=== PATIENT | female | born 1985 | race Caucasian/White ===

== ENCOUNTER 2017-11-17 16:14 | Emergency (ER) | payer OTHER, SELFPAY ==
[2017-11-17 16:15] VITALS: BP 161/80; PULSE 71; RESP 18; TEMP 36.8; O2SAT 100; BMI 35.2
--- NOTE | 2017-11-17 16:35 | ED.DCSUM_ITS ---
- ER Visit Summary Date of Service: 11/17/17 Chief Complaint: Nausea, vomiting. History of Present Illness: The patient is a 32 F presenting with nausea, vomiting. She states this has been ongoing for the past 2 weeks. She is 8 weeks . She states she vomited 3 times today. She states she has been vomiting daily for the past 2 weeks. She is . She has had no vaginal bleeding. She had an ultrasound last week at her OB office which showed an intrauterine . She denies other complaints. She went to her PASTE MAKER office today and was advised to come to the ED for IV fluids. Physical Examination: Vitals are stable. Patient is afebrile. Alert no acute distress. HEENT exam is unremarkable. Neck is supple. Lungs are clear and equal bilaterally. Heart is regular rate and rhythm. Abdomen is soft nontender nondistended. No guarding or rebound. Extremities are unremarkable. Skin is warm and dry. Remainder of exam is unremarkable. Emergency Department Course and Treatment: Patient is given IV fluids, Zofran. CBC shows a white count 11.3. Chemistries unremarkable. Patient is feeling much improved in the emergency department. She is able to tolerate p.o. in the emergency department. 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 She has an appointment with her PASTE MAKER tomorrow for follow- up. She is advised return to ED for any worsening complaints. Disposition: Discharge home Impression: Vomiting in This note was generated with [employer] dictation software. It may contain incorrect words, spelling, and punctuation that were not noted in review of the chart prior to signing ED Disposition - Plan for ED Patient: Chief Complaint: Nausea/Vomiting Instructions: ED Preg Morning Sickness Referrals: Tejinder Webster DO [NON CLINICAL AFFILIATE] - Radha Gomez MD [STAFF PHYSICIAN] -
[2017-11-17] MEDS: 0.9% Normal Saline 1,000 ML 1000 ML IV ×2 (16:51→17:58)
[2017-11-17] MEDS: Ondansetron 4 MG/2 ML Vial IV (16:51)
[2017-11-17 16:59] LABS: Absolute Lymphocyte Count 2.47 X10^3/ul (0.83-4.51); Basophil# 0.03 X10^3/uL; Basophil% 0.3 % (0-1); Eosinophil# 0.08 X10^3/uL; Eosinophils% 0.7 % (0-5); Hematocrit 35.9 % (37-47); Hemoglobin 12.4 g/dl (12.0-15.0); Lymphocyte # 2.47 X10^3/ul (4.0); Lymphocyte % 21.8 % (19-41); Mean Corp Hgb Conc 34.5 g/gl (32-36); Mean Corpuscular Hgb 31.7 pg (27.0-32.0); Mean Corpuscular Volume 91.8 fL (81-99); Mean Platelet Vol. 9.7 fl (6.2-12.0); Monocyte# 0.75 X10^3/uL; Monocyte% 6.6 % (0-10); Neutrophil # 7.97 X10^3/uL (2.7-7.7); Neutrophil % 70.5 % (47-70); Platelet Count 344 K/mm3 (150-450); RBC Distribution Width CV 12.5 % (11.6-14.6); RBC Distribution Width SD 41.1 fl (35.1-43.9); Red Blood Count 3.91 M/mm3 (4.2-5.4); White Blood Count 11.3 K/mm3 (4.4-11.0)
[2017-11-17 17:11] LABS: POSITIVE COUNT NO; POSITIVE DIFFERENTIAL NO; POSITIVE MORPHOLOGY NO
[2017-11-17 17:23] LABS: ALB/GLOB Ratio 1.1 RATIO (0.9-2.4); AST(SGOT) 19 U/L (15-37); Alanine Aminotransfer ALT/SGPT 25 U/L (13-56); Albumin, Serum 3.6 g/dL (3.2-5.0); Alkaline Phosphatase 57 U/L (45-117); Anion Gap 7 (5-15); BUN 11 mg/dL (7-18); Calcium,Total 9.4 mg/dL (8.5-10.1); Chloride 107 mmol/L (98-107); Creatinine, Serum 0.46 mg/dL (0.55-1.02); EST Glomerular Filtration Rate 169 mL/min (>60); Est Glom Filt Rate - Afr Amer 204 mL/min (>60); Estimated Creatinine Clearance 165.89 ml/min; Globulin 3.2 g/dL (2.2-4.2); Glucose 97 mg/dL (74-106); Potassium 3.8 mmol/L (3.5-5.1); Protein, Total 6.8 g/dL (6.4-8.2); Sodium Level 140 mmol/L (136-145)
--- NOTE | 2017-11-17 18:15 | ED.DEP ---
ED Disposition - Plan for ED Patient: Chief Complaint: Nausea/Vomiting Instructions: ED Preg Morning Sickness Referrals: Tejinder Webster DO [NON CLINICAL AFFILIATE] - Radha Gomez MD [STAFF PHYSICIAN] -
[2017-11-17 18:46] VITALS: RESP 16
== END 2017-11-17 18:47 | disposition home or self-care (01) ==
PROVIDERS: Emergency Provider Emergency Medicine; Family Provider Family Medicine; PCP Family Medicine
DX: O21.9 Vomiting of pregnancy, unspecified (principal); Z3A.08 8 weeks gestation of pregnancy
CPT/HCPCS: 80053; 85025; 96361; 96374; 99283; J7030; J2405

== ENCOUNTER 2018-04-22 10:17 | Outpatient (CLI) | payer OTHER, SELFPAY ==
[2018-04-22 10:52] VITALS: BMI 38.2
[2018-04-22 11:00] LABS: Hematocrit 35.4 % (37-47); Hemoglobin 11.9 g/dl (12.0-15.0); Mean Corp Hgb Conc 33.6 g/gl (32-36); Mean Corpuscular Hgb 31.1 pg (27.0-32.0); Mean Corpuscular Volume 92.4 fL (81-99); Mean Platelet Vol. 9.6 fl (6.2-12.0); Platelet Count 376 K/mm3 (150-450); RBC Distribution Width SD 43.2 fl (35.1-43.9); Red Blood Count 3.83 M/mm3 (4.2-5.4); White Blood Count 14.1 K/mm3 (4.4-11.0)
[2018-04-22 11:02] LABS: Scan Indicated on CBC? Y/N NO
[2018-04-22 11:09] LABS: Prothrombin Time (Protime)PT. 12.9 SECONDS (11.7-14.9)
[2018-04-22 11:10] LABS: Partial Thromboplast Time 28.5 Seconds (24.1-36.2)
[2018-04-22 11:11] LABS: Protein, Urine (Random) 10.2 mg/dL (<11.9); Protein:Creat Ratio 95 mg/g CRE (0-200)
[2018-04-22 11:17] LABS: AST(SGOT) 21 U/L (15-37); Alanine Aminotransfer ALT/SGPT 23 U/L (13-56); Creatinine, Serum 0.32 mg/dL (0.55-1.02); EST Glomerular Filtration Rate 253 mL/min (>60); Est Glom Filt Rate - Afr Amer 306 mL/min (>60); Estimated Creatinine Clearance 238.46 ml/min; Uric Acid 3.5 mg/dL (2.6-6.0)
--- NOTE | 2018-04-23 17:57 | OB.TRI.PN ---
Progress Notes Date of Service: 04/22/18 Progress Note: S: at 27w2d Patient seen in office with elevated BP. Sent to L&D for triage, labs, and serial BP. Headache mild, did not take anything for relief. O:Labs normal, awaiting 24h urine FHT 155, moderate variability, accels, variable decel, Reactive 15x15 A:Gestational HTN P: 1) Consulted regarding patient elevated BP, Pre-e precautions given. 2) Follow up in 2 days with . 3) D/C home. Laboratory Studies: Laboratory Tests 04/22/18 04/22/18 04/22/18 Range/Units 10:45 10:45 10:45 WBC (4.4-11.0) K/mm3 RBC (4.2-5.4) M/mm3 Hgb (12.0-15.0) g/dl Hct (37-47) % MCV (81-99) fL MCH (27.0-32.0) pg MCHC (32-36) g/gl RDW (11.6-14.6) % RDW Differential (35.1-43.9) fl Plt Count (150-450) K/mm3 MPV (6.2-12.0) fl PT 12.9 (11.7-14.9) SECONDS INR 1.0 APTT 28.5 (24.1-36.2) Seconds Creatinine 0.32 L (0.55-1.02) mg/dL Estim Creat Clear Calc 238.46 ml/min Est GFR (MDRD) Af Amer 306 (>60) mL/min Est GFR (MDRD) Non-Af 253 (>60) mL/min Uric Acid 3.5 (2.6-6.0) mg/dL AST 21 (15-37) U/L ALT 23 (13-56) U/L U Random Total Protein 10.2 (<11.9) mg/dL Urine Creatinine 107.00 (NO RANGE EST.) mg/dL Protein/Creatinin Ratio 95 (0-200) mg/g CRE 04/22/18 Range/Units 10:45 WBC 14.1 H (4.4-11.0) K/mm3 RBC 3.83 L (4.2-5.4) M/mm3 Hgb 11.9 L (12.0-15.0) g/dl Hct 35.4 L (37-47) % MCV 92.4 (81-99) fL MCH 31.1 (27.0-32.0) pg MCHC 33.6 (32-36) g/gl RDW 13.0 (11.6-14.6) % RDW Differential 43.2 (35.1-43.9) fl Plt Count 376 (150-450) K/mm3 MPV 9.6 (6.2-12.0) fl PT (11.7-14.9) SECONDS INR APTT (24.1-36.2) Seconds Creatinine (0.55-1.02) mg/dL Estim Creat Clear Calc ml/min Est GFR (MDRD) Af Amer (>60) mL/min Est GFR (MDRD) Non-Af (>60) mL/min Uric Acid (2.6-6.0) mg/dL AST (15-37) U/L ALT (13-56) U/L U Random Total Protein (<11.9) mg/dL Urine Creatinine (NO RANGE EST.) mg/dL Protein/Creatinin Ratio (0-200) mg/g CRE
--- NOTE | 2018-04-23 18:10 | OB.TRI.PN ---
Progress Notes Date of Service: 04/22/18 Progress Note: S: at 31w0d Patient seen in office with elevated BP. Sent to L&D for triage, labs, and serial BP. Headache mild, took tylenol and effective. Denies RUQ pain or visual changes. 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 In office 154/88. O:Labs normal, awaiting 24h urine FHT 145, moderate variability accels, reactive. In office no clonus, +2/4 BLE DTRs A:Gestational HTN P: 1) Consulted regarding patient elevated BP, Pre-e precautions given. To start Labetalol 100mg PO BID. 2) Follow up in 2 days with . 3) D/C home. 4) Return 24 hr urine on 04/23/18 Laboratory Studies: Laboratory Tests 04/22/18 04/22/18 04/22/18 Range/Units 10:45 10:45 10:45 WBC (4.4-11.0) K/mm3 RBC (4.2-5.4) M/mm3 Hgb (12.0-15.0) g/dl Hct (37-47) % MCV (81-99) fL MCH (27.0-32.0) pg MCHC (32-36) g/gl RDW (11.6-14.6) % RDW Differential (35.1-43.9) fl Plt Count (150-450) K/mm3 MPV (6.2-12.0) fl PT 12.9 (11.7-14.9) SECONDS INR 1.0 APTT 28.5 (24.1-36.2) Seconds Creatinine 0.32 L (0.55-1.02) mg/dL Estim Creat Clear Calc 238.46 ml/min Est GFR (MDRD) Af Amer 306 (>60) mL/min Est GFR (MDRD) Non-Af 253 (>60) mL/min Uric Acid 3.5 (2.6-6.0) mg/dL AST 21 (15-37) U/L ALT 23 (13-56) U/L U Random Total Protein 10.2 (<11.9) mg/dL Urine Creatinine 107.00 (NO RANGE EST.) mg/dL Protein/Creatinin Ratio 95 (0-200) mg/g CRE 04/22/18 Range/Units 10:45 WBC 14.1 H (4.4-11.0) K/mm3 RBC 3.83 L (4.2-5.4) M/mm3 Hgb 11.9 L (12.0-15.0) g/dl Hct 35.4 L (37-47) % MCV 92.4 (81-99) fL MCH 31.1 (27.0-32.0) pg MCHC 33.6 (32-36) g/gl RDW 13.0 (11.6-14.6) % RDW Differential 43.2 (35.1-43.9) fl Plt Count 376 (150-450) K/mm3 MPV 9.6 (6.2-12.0) fl PT (11.7-14.9) SECONDS INR APTT (24.1-36.2) Seconds Creatinine (0.55-1.02) mg/dL Estim Creat Clear Calc ml/min Est GFR (MDRD) Af Amer (>60) mL/min Est GFR (MDRD) Non-Af (>60) mL/min Uric Acid (2.6-6.0) mg/dL AST (15-37) U/L ALT (13-56) U/L U Random Total Protein (<11.9) mg/dL Urine Creatinine (NO RANGE EST.) mg/dL Protein/Creatinin Ratio (0-200) mg/g CRE
== END 2018-04-22 13:40 | disposition home or self-care (01) ==
LOC: WPOUT 10:20 → WP 10:21
PROVIDERS: Obstetrics & Gynecology; Family Provider Family Medicine; PCP Family Medicine; Referring Provider Advanced Practice Midwife; Visit Provider Advanced Practice Midwife
DX: O13.3 Gestational [pregnancy-induced] hypertension without significant proteinuria, third trimester (principal); Z3A.31 31 weeks gestation of pregnancy
CPT/HCPCS: 36415; 59025; 59050; 82565; 82570; 84156; 84450; 84460; 84550; 85027; 85610; 85730; 99218; G0378

== ENCOUNTER → 2018-04-23 13:48 | Outpatient (CLI) | payer OTHER, SELFPAY ==
[2018-04-22 10:52] VITALS: BMI 38.2
[2018-04-23 17:33] LABS: 24 Hour Urine Protein 125.2 mg/24HR (<150 MG/24HR); 24HR. UA Prot. Total Volume 1670 mL; Urine Protein (24 Hour) 7.5 mg/dL (<11.9)
== END ==
PROVIDERS: Family Provider Family Medicine; PCP Family Medicine; Referring Provider Advanced Practice Midwife; Visit Provider Advanced Practice Midwife
DX: O13.9 Gestational [pregnancy-induced] hypertension without significant proteinuria, unspecified trimester (principal); Z3A.00 Weeks of gestation of pregnancy not specified
CPT/HCPCS: 84156

== ENCOUNTER 2018-05-07 12:45 | Outpatient (CLI) | payer OTHER, SELFPAY ==
[2018-05-07 13:03] VITALS: BMI 38.1
[2018-05-07 13:38] LABS: Hemoglobin 12.1 g/dl (12.0-15.0); Mean Corp Hgb Conc 32.7 g/gl (32-36); Mean Corpuscular Volume 91.8 fL (81-99); Mean Platelet Vol. 9.6 fl (6.2-12.0); Platelet Count 323 K/mm3 (150-450); RBC Distribution Width CV 13.4 % (11.6-14.6); RBC Distribution Width SD 44.6 fl (35.1-43.9); Red Blood Count 4.03 M/mm3 (4.2-5.4); White Blood Count 8.6 K/mm3 (4.4-11.0)
[2018-05-07 13:40] LABS: Scan Indicated on CBC? Y/N NO
[2018-05-07 13:44] LABS: AST(SGOT) 13 U/L (15-37); Alanine Aminotransfer ALT/SGPT 14 U/L (13-56); Creatinine, Serum 0.35 mg/dL (0.55-1.02); EST Glomerular Filtration Rate 230 mL/min (>60); Est Glom Filt Rate - Afr Amer 278 mL/min (>60); Estimated Creatinine Clearance 218.02 ml/min; Protein, Urine (Random) 40.4 mg/dL (<11.9); Protein:Creat Ratio 155 mg/g CRE (0-200); Uric Acid 3.4 mg/dL (2.6-6.0)
[2018-05-07 13:53] LABS: Partial Thromboplast Time 28.6 Seconds (24.1-36.2)
--- NOTE | 2018-05-07 14:29 | OB.TRI.HP_ITS ---
History of Present Illness Date of Service: 05/07/18 Was patient seen by the physician?: Yes Reason For Visit: R/O PREECLAMPSIA Date of Service: 05/07/18 Final REYNA: 06/24/18 Gestational age: 33 Weeks and 1 Days History of Present Illness: Patient presents with frontal headache - 09/28. Also she sees some spots. Denies RUQ pain. She just doesn't feel well & is tried. Her appetite is decreased & hasn't eaten or drank much today. Allergies tramadol [From [facility]] Adverse Reaction (Verified 05/07/18 13:05) Other dizziness, lightheaded Laboratory Studies: Laboratory Tests 05/07/18 05/07/18 05/07/18 Range/Units 13:15 13:15 13:15 WBC (4.4-11.0) K/mm3 RBC (4.2-5.4) M/mm3 Hgb (12.0-15.0) g/dl Hct (37-47) % MCV (81-99) fL MCH (27.0-32.0) pg MCHC (32-36) g/gl RDW (11.6-14.6) % RDW Differential (35.1-43.9) fl Plt Count (150-450) K/mm3 MPV (6.2-12.0) fl PT 13.0 (11.7-14.9) SECONDS INR 1.0 APTT 28.6 (24.1-36.2) Seconds Creatinine 0.35 L (0.55-1.02) mg/dL Estim Creat Clear Calc 218.02 ml/min Est GFR (MDRD) Af Amer 278 (>60) mL/min Est GFR (MDRD) Non-Af 230 (>60) mL/min Uric Acid 3.4 (2.6-6.0) mg/dL AST 13 L (15-37) U/L ALT 14 (13-56) U/L U Random Total Protein 40.4 H (<11.9) mg/dL Urine Creatinine 261.00 (NO RANGE EST.) mg/dL Protein/Creatinin Ratio 155 (0-200) mg/g CRE 05/07/18 Range/Units 13:15 WBC 8.6 (4.4-11.0) K/mm3 RBC 4.03 L (4.2-5.4) M/mm3 Hgb 12.1 (12.0-15.0) g/dl Hct 37.0 (37-47) % MCV 91.8 (81-99) fL MCH 30.0 (27.0-32.0) pg MCHC 32.7 (32-36) g/gl RDW 13.4 (11.6-14.6) % RDW Differential 44.6 H (35.1-43.9) fl Plt Count 323 (150-450) K/mm3 MPV 9.6 (6.2-12.0) fl PT (11.7-14.9) SECONDS INR APTT (24.1-36.2) Seconds Creatinine (0.55-1.02) mg/dL Estim Creat Clear Calc ml/min Est GFR (MDRD) Af Amer (>60) mL/min Est GFR (MDRD) Non-Af (>60) mL/min Uric Acid (2.6-6.0) mg/dL AST (15-37) U/L ALT (13-56) U/L U Random Total Protein (<11.9) mg/dL Urine Creatinine (NO RANGE EST.) mg/dL Protein/Creatinin Ratio (0-200) mg/g CRE Physical Exam General: Alert, Oriented x3 NST - FHR Rate Baby A Baseline: 145 Variability:: Moderate Accelerations:: 15 x 15 Decelerations:: Variable Uterine Activity:: occasional Impression/Plan 32yo female with frontal headache & spots in vision BP's normal & preE labs normal Suspect patient has virus Advised to rest & hydrate Reviewed preE & headache precautions
--- OUTSIDE RECORDS SUMMARY | 2018-07-12 05:23 | XMS RPT_ITS ---
:1985 Author Organization OH[facility] Care Team Providers Name Role Phone LUZ GLORIA (INFO SPECIALIST) Attending Unavailable LUZ GLORIA (INFO SPECIALIST) Referring Unavailable JETHRO AVALOS Attending Unavailable YAQUELIN NAIK (PRABHUM) Referring Unavailable YAQUELIN NAIK (CNM) Attending Unavailable OSCAR DREW (CNM) Attending Unavailable YAQUELIN NAIK (PRABHUM) Attending Unavailable GEORGINA CISNEROS Attending Unavailable OSCAR DREW (PRABHUM) Referring Unavailable JB LORA Attending Unavailable GEORGINA CISNEROS Referring Unavailable OSCAR DREW (PRABHUM) Attending Unavailable NEYHART ROME, JETHRO Referring Unavailable PIERO NAYAK Attending Unavailable YAQUELIN NAIK (CNM) Attending Unavailable GEORGINA CISNEROS Attending Unavailable JB LORA Attending Unavailable PIERO NAYAK Referring Unavailable JETHRO AVALOS Attending Unavailable PODLOGARARIANA (INFO SPECIALIST) Attending Unavailable PODLOGAR, ARIANA (INFO SPECIALIST) Referring Unavailable NANNETTE WERNER Attending Unavailable NANNETTE WERNER Referring Unavailable PODLOGAR, ARIANA (INFO SPECIALIST) Referring Unavailable GEORGINA CISNEROS Attending Unavailable OSCAR DREW (CNM) Attending Unavailable TRACY ROME, JETHRO Attending Unavailable JB LORA Attending Unavailable TRACY ROME, JETHRO Referring Unavailable YAQUELIN NAIK (CNM) Attending Unavailable TRACY ROME, JETHRO Referring Unavailable Oscar Drew Attending Unavailable Rajendra Oscar Referring Unavailable Bursley, Jayson Primary Care Unavailable Oscar Drew Attending Unavailable Rajendra Oscar Referring Unavailable Bursley, Jayson Primary Care Unavailable Linsey Zuleta Attending Unavailable Tejinder Webster Referring Unavailable Marlene Keating Attending Unavailable Bursley, Jayson Primary Care Unavailable Piero Nayak Attending Unavailable Piero Nayak Referring Unavailable Bursley, Jayson Primary Care Unavailable PROBLEMS PROBLEMS DATE TYPE CONDITION / CODE ATTENDING STATUS SOURCE 04/11/2018 Active Mixed hyperlipidemia NA Active [facility] / E78.2(ICD-10) [place] Repository 03/31/2018 Active 27 weeks gestation NA Active [facility] of / [place] Z3A.27(ICD-10) Repository 03/19/2018 Active Encounter for other NA Active [facility] specified special [place] examinations / Repository Z01.89(ICD-10) 11/18/2017 Active Supervision of high NA Active [facility] risk , [place] unspecified, first Repository trimester / O09.91(ICD-10) 11/06/2017 Active Unknown / NA Active [facility] UNK(Unknown) [place] Rep[facility] 07/22/2017 Active Pain in left foot / NA Active [facility] M79.672(ICD-10) [facility] [place] Rep[facility] PROCEDURES PROCEDURES No Procedure Records FoundRESULTS RESULTS PROGRESS Observed: 05/14/2018 Status: COMPLETED Source: [facility] 2:21 PM [facility] REPOSITORY HNO ID: [id number] Author: Jessica Ballard Ma Service: (none) Author Type: (none) Type: Progress Notes Filed: 05/14/2018 2:37 PM Note Text: Patient identified by name and date of . Odin Bartlett presents today for a vaccination of Tdap. Patient denies an allergy to latex: yes Patient denies a severe (life-threatening) allergy to a previous dose of Tdap, DTP, DTaP, DT or Td vaccine. Yes Patient denies history of epilepsy or neurological problems: Yes Patient is afebrile and denies being moderately or severely ill: Yes Patient denies history of Guillain-Griswold Syndrome (a severe paralytic illness): Yes Tdap Adacel injection was given without incident. See immunizations for details of immunizations administered today. VIS sheet provided: Yes Provider Yaquelin aNik CNM was present in office at time of injection. Jessica Ballard Ma PROGRESS Observed: 05/14/2018 Status: COMPLETED Source: [place] 2:18 PM [facility] REPOSITORY HNO ID: [id number] Author: Jb Lora Service: (none) Author Type: Physician Type: Progress Notes Filed: 05/14/2018 2:21 PM Note Text: A lamb intrauterine The size is AGA Estimated Date of Delivery: 06/24/18 EGA = [id number] The anatomy appears normal in the areas visualized. The amniotic fluid volume is normal. There is no evidence of effusions and/ or hydrops. The placenta is fundal. RECOMMENDATIONS: - Self-assessment of kick counts - Follow up ultrasound as clinically indicated CBC-COMPLETE BLOOD CNT Collected: 05/07/2018 Status: F Source: [place] NO DIFF 1:15 PM [facility] REPOSITORY TYPE CODE TESTS RESULT OUT OF RANGE REFERENCE UNITS LAB L100.1000 4.4-11.0 K/mm3 Normal WBC 8.6 LAB L100.1200 4.2-5.4 M/mm3 Low RBC 4.03 LAB L100.1300 12.0-15.0 g/dl Normal HGB 12.1 LAB L100.1400 37-47 % Normal HCT 37.0 LAB L100.1500 81-99 fL Normal MCV 91.8 LAB L100.1600 27.0-32.0 pg Normal MCH 30.0 LAB L100.1700 32-36 g/gl Normal MCHC 32.7 LAB L100.1810 11.6-14.6 % Normal RDW CV 13.4 LAB L100.1820 35.1-43.9 fl High RDW SD 44.6 LAB L100.1900 150-450 K/mm3 Normal PLT 323 LAB L100.2000 6.2-12.0 fl Normal MPV 9.6 Performed By: #### L100.0500 #### [facility] [address] [place], [address] PROTEIN+CREATININE Collected: Status: F Source: [place] RATIO,URINE 05/07/2018 1:15 PM [facility] REPOSITORY TYPE CODE TESTS RESULT OUT OF RANGE REFERENCE UNITS LAB L501.1200 NO RANGE EST. mg/dL Normal UR CREAT 261.00 LAB L501.1930 <11.9 mg/dL High 40.4 PROTEIN,UR.R AN. LAB L501.1940 0-200 mg/g CRE Normal PROT:CRE 155 RATIO Performed By: #### L501.0900 #### [facility] [address] [place], [address] SERUM CREATININE AND Collected: 05/07/2018 Status: F Source: [place] GFR 1:15 PM [facility] REPOSITORY TYPE CODE TESTS RESULT OUT OF RANGE REFERENCE UNITS LAB L501.1100 0.55-1.02 mg/dL Low 0.35 CREAT,SERUM Result Comment: The validity of the calculated GFR AND GFRAA in patients over 70 years has not been determined. Clinical correlation is essential. LAB L501.1110 >60 mL/min Normal EST GFR 230 Result Comment: Non- GFR Calc LAB L501.1115 >60 mL/min Normal EST GFR - AA 278 Result Comment: GFR Calc LAB L501.1255 ml/min Normal Estimated CRCL 218.02 Performed By: #### L501.1105, L501.1400, L501.4100, L501.4405, L300.3900, L300.4310 #### [facility] [address] [place], [address] URIC ACID Collected: 05/07/2018 Status: F Source: [place] 1:15 PM [facility] REPOSITORY TYPE CODE TESTS RESULT OUT OF RANGE REFERENCE UNITS LAB L501.1400 2.6-6.0 mg/dL Normal URIC 3.4 Result Comment: The drugs N-Acetylcysteine and Metamizole may falsely depress this assay. Performed By: #### L501.1105, L501.1400, L501.4100, L501.4405, L300.3900, L300.4310 #### [facility] [address] [facility] [place], [address] AST(SGOT) Collected: 05/07/2018 Status: F Source: [place] 1:15 PM [facility] REPOSITORY TYPE CODE TESTS RESULT OUT OF RANGE REFERENCE UNITS LAB L501.4100 15-37 U/L Low AST 13 Performed By: #### L501.1105, L501.1400, L501.4100, L501.4405, L300.3900, L300.4310 #### [facility] [address] [facility] [place], [address] ALANINE AMINOTRANSFERAS Collected: 05/07/2018 Status: F Source: [place] (SGPT) 1:15 PM [facility] REPOSITORY TYPE CODE TESTS RESULT OUT OF RANGE REFERENCE UNITS LAB L501.4405 13-56 U/L Normal ALT 14 Performed By: #### L501.1105, L501.1400, L501.4100, L501.4405, L300.3900, L300.4310 #### [facility] [address] [facility] [place], [address] PROTHROMBIN TIME W/INR Collected: 05/07/2018 Status: F Source: [place] 1:15 PM [facility] REPOSITORY TYPE CODE TESTS RESULT OUT OF RANGE REFERENCE UNITS LAB L300.4150 11.7-14.9 SECONDS Normal PROTIME 13.0 LAB L300.4200 Normal INR 1.0 Performed By: #### L501.1105, L501.1400, L501.4100, L501.4405, L300.3900, L300.4310 #### [facility] [address] [place], [address] PARTIAL THROMBOPLAST Collected: 05/07/2018 Status: F Source: [place] TIME 1:15 PM [facility] REPOSITORY TYPE CODE TESTS RESULT OUT OF RANGE REFERENCE UNITS LAB L300.4310 24.1-36.2 Seconds Normal PTT 28.6 Performed By: #### L501.1105, L501.1400, L501.4100, L501.4405, L300.3900, L300.4310 #### [facility] [address] [place], [address] CNCO Observed: 04/27/2018 Status: COMPLETED Source: [place] 12:00 AM [facility] REPOSITORY Letter Text Jethro Rome MD [facility] [address] [place], [place] [address] 04/27/2018 RE: Odin Dhruv : 1985 To Whom It May Concern: Odin has been under my care and may return to work with no restrictions on 04/29/2018 Sincerely, Jethro Rome MD PROTEIN, URINE 24HR Collected: 04/23/2018 Status: F Source: [place] 1:30 PM [facility] REPOSITORY TYPE CODE TESTS RESULT OUT OF RANGE REFERENCE UNITS LAB L501.1850 24.0 HOURS Normal UR COLLECT 24.0 TIME LAB L501.1875 mL Normal UR TOTAL 1670 VOLUME LAB L501.1900 <11.9 mg/dL Normal URINE PROTEIN 7.5 LAB L501.1925 <150 MG/24HR mg/24HR Normal 24hr UR 125.2 PROTEIN Performed By: #### L500.9000 #### [facility] [address] [place], [address] CBC-COMPLETE BLOOD CNT Collected: 04/22/2018 Status: F Source: [place] NO DIFF 10:45 AM [facility] REPOSITORY TYPE CODE TESTS RESULT OUT OF RANGE REFERENCE UNITS LAB L100.1000 4.4-11.0 K/mm3 High WBC 14.1 LAB L100.1200 4.2-5.4 M/mm3 Low RBC 3.83 LAB L100.1300 12.0-15.0 g/dl Low HGB 11.9 LAB L100.1400 37-47 % Low HCT 35.4 LAB L100.1500 81-99 fL Normal MCV 92.4 LAB L100.1600 27.0-32.0 pg Normal MCH 31.1 LAB L100.1700 32-36 g/gl Normal MCHC 33.6 LAB L100.1810 11.6-14.6 % Normal RDW CV 13.0 LAB L100.1820 35.1-43.9 fl Normal RDW SD 43.2 LAB L100.1900 150-450 K/mm3 Normal PLT 376 LAB L100.2000 6.2-12.0 fl Normal MPV 9.6 Performed By: #### L100.0500 #### [facility] [address] [place], [address] PROTHROMBIN TIME W/INR Collected: 04/22/2018 Status: F Source: [place] 10:45 AM [facility] REPOSITORY TYPE CODE TESTS RESULT OUT OF RANGE REFERENCE UNITS LAB L300.4150 11.7-14.9 SECONDS Normal PROTIME 12.9 LAB L300.4200 Normal INR 1.0 Performed By: #### L300.3900, L300.4310 #### [facility] [address] [place], [address] PARTIAL THROMBOPLAST Collected: 04/22/2018 Status: F Source: [place] TIME 10:45 AM [facility] REPOSITORY TYPE CODE TESTS RESULT OUT OF RANGE REFERENCE UNITS LAB L300.4310 24.1-36.2 Seconds Normal PTT 28.5 Performed By: #### L300.3900, L300.4310 #### [facility] [address] [place], [address] PROTEIN+CREATININE Collected: Status: F Source: [place] RATIO,URINE 04/22/2018 10:45 AM [facility] REPOSITORY TYPE CODE TESTS RESULT OUT OF RANGE REFERENCE UNITS LAB L501.1200 NO RANGE EST. mg/dL Normal UR CREAT 107.00 LAB L501.1930 <11.9 mg/dL Normal 10.2 PROTEIN,UR.R AN. LAB L501.1940 0-200 mg/g CRE Normal PROT:CRE 95 RATIO Performed By: #### L501.0900 #### [facility] [address], [address] SERUM CREATININE AND Collected: 04/22/2018 Status: F Source: [place] GFR 10:45 AM [facility] REPOSITORY TYPE CODE TESTS RESULT OUT OF RANGE REFERENCE UNITS LAB L501.1100 0.55-1.02 mg/dL Low 0.32 CREAT,SERUM Result Comment: The validity of the calculated GFR AND GFRAA in patients over 70 years has not been determined. Clinical correlation is essential. LAB L501.1110 >60 mL/min Normal EST GFR 253 Result Comment: Non- GFR Calc LAB L501.1115 >60 mL/min Normal EST GFR - AA 306 Result Comment: GFR Calc LAB L501.1255 ml/min Normal Estimated CRCL 238.46 Performed By: #### L501.1105, L501.1400, L501.4100, L501.4405 #### [facility] [address] [place], [address] URIC ACID Collected: 04/22/2018 Status: F Source: [place] 10:45 AM [facility] REPOSITORY TYPE CODE TESTS RESULT OUT OF RANGE REFERENCE UNITS LAB L501.1400 2.6-6.0 mg/dL Normal URIC 3.5 Result Comment: The drugs N-Acetylcysteine and Metamizole may falsely depress this assay. Performed By: #### L501.1105, L501.1400, L501.4100, L501.4405 #### [facility] [address] [place], [address] AST(SGOT) Collected: 04/22/2018 Status: F Source: [place] 10:45 AM [facility] REPOSITORY TYPE CODE TESTS RESULT OUT OF RANGE REFERENCE UNITS LAB L501.4100 15-37 U/L Normal AST 21 Performed By: #### L501.1105, L501.1400, L501.4100, L501.4405 #### [facility] [address] [place], [address] ALANINE AMINOTRANSFERAS Collected: 04/22/2018 Status: F Source: [place] (SGPT) 10:45 AM [facility] REPOSITORY TYPE CODE TESTS RESULT OUT OF RANGE REFERENCE UNITS LAB L501.4405 13-56 U/L Normal ALT 23 Performed By: #### L501.1105, L501.1400, L501.4100, L501.4405 #### [facility] [address] [place], [address] LIPID PANEL, BASIC Collected: 04/11/2018 Status: F Source: [place] 8:31 AM [facility] REPOSITORY TYPE CODE TESTS RESULT OUT OF REFERENCE UNITS RANGE LAB CHOL <200 mg/dL Cholesterol High 300 Result Comment: <200 mg/dL, Desirable 200-239 mg/dL, Borderline high >239 mg/dL, High LAB TRIGLY <150 mg/dL Triglyceride High 214 Result Comment: <150 mg/dL, Normal 150-199 mg/dL, Borderline high 200-499 mg/dL, High >499 mg/dL, Very high LAB HDL >39 mg/dL HDL-Cholesterol 53 Result Comment: 40-59 mg/dL, Acceptable >59 mg/dL, High: Negative risk factor for coronary heart disease <40 mg/dL, Low: Positive risk factor for coronary heart disease LAB LDL <100 mg/dL LDL-Cholesterol High 204 Result Comment: <100 mg/dL, Optimal 100-129 mg/dL, Near optimal/above optimal 130-159 mg/dL, Borderline high 160-189 mg/dL, High >189 mg/dL, Very high Secondary prevention optimal LDL Cholesterol levels are recommended to be < 70 mg/dL LAB NONHDL <130 mg/dL Non HDL High Cholesterol 247 Result Comment: <130 mg/dL, Optimal 130-159 mg/dL, Near optimal/above optimal 160-189 mg/dL, Borderline high 190-219 mg/dL, High >219 mg/dL, Very high Secondary prevention optimal non HDL Cholesterol levels are recommended to be < 100 mg/dL LAB FT hrs Fasting Time 12 LAB VLDL <30 mg/dL High VLDL Cholesterol 43 LAB TCHDL <5.10 High TC:HDL Ratio 5.66 LAB LDLHDL <2.54 High LDL:HDL Ratio 3.85 Result Comment: Reference: 1. National Cholesterol Education Program ATP III Guideline At-A-Glance Quick Desk Reference: National Heart, Lung, and Blood [place]. National Institutes of Health. 2001: NIH Publication No. 01-3305. 2. An International Atherosclerosis Society position paper: global recommendations for the management of dyslipidemia: executive summary, Atherosclerosis. 2014: 232(2):410-413. Performed By: #### LIPB #### [facility] [employer] [address] [place] [address] CBC AND DIFFERENTIAL Collected: 03/31/2018 Status: F Source: [place] 11:59 AM [facility] REPOSITORY TYPE CODE TESTS RESULT OUT OF REFERENCE UNITS RANGE LAB WBC 3.70-11.00 k/uL WBC High 12.71 LAB RBC 3.90-5.20 m/uL Low RBC 3.83 LAB HGB 11.5-15.5 g/dL Hemoglobin 11.6 LAB HCT 36.0-46.0 % Hematocrit 37.0 LAB MCV 80.0-100.0 fL MCV 96.6 LAB MCH 26.0-34.0 pG MCH 30.3 LAB MCHC 30.5-36.0 g/dL MCHC 31.4 LAB RDWCV 11.5-15.0 % RDW-CV 13.2 LAB PLTCT 150-400 k/uL Platelet Count 395 LAB MPV 9.0-12.7 fL MPV 10.3 LAB ANEUT % Neut% 76.4 LAB AANEUT 1.45-7.50 k/uL Abs Neut High 9.71 LAB ALYMP % Lymph% 16.4 LAB AALYMP 1.00-4.00 k/uL Abs Lymph 2.08 LAB AMONO % [place]% 5.7 LAB AAMONO <0.87 k/uL Abs [place] 0.73 LAB AEOS % Eosin% 1.2 LAB AAEOS <0.46 k/uL Abs Eosin 0.15 LAB ABASO % Baso% 0.3 LAB AABASO <0.11 k/uL Abs Baso 0.04 LAB AUNRBC 0 /100 WBC NRBCs 0.0 LAB ABNRBC <0.01 k/uL Absolute nRBC <0.01 LAB DTYP DTYPE Auto Diff Performed By: #### CBCDIF #### [facility] [employer] [address] [place], [place] [address] 50G, 1HR GEST. Collected: 03/31/2018 Status: F Source: [place] GSCRN 11:59 AM [facility] REPOSITORY TYPE CODE TESTS RESULT OUT OF REFERENCE UNITS RANGE LAB GLUP 74-134 mg/dL Glucose 100 Screen, Preg Result Comment: Indian Congress of Obstetricians and Gynecologists (Hill/Remingtonan) guidelines state a gestational diabetes mellitus positive screen is made, in women not previously diagnosed with overt diabetes, when the 1 hr plasma glucose level is equal to or above 140 mg/dL. The [facility] Software Design Engineer and [facility] [place] recommends a 135 mg/dL cutoff. Performed By: #### GLTGST #### [facility] [employer] [address] [place], [place] [address] BASIC METABOLIC PANL Collected: 03/19/2018 Status: F Source: [place] 2:15 PM [facility] REPOSITORY TYPE CODE TESTS RESULT OUT OF REFERENCE UNITS RANGE LAB GLU 74-99 mg/dL Glucose 88 Result Comment: The Indian Diabetes Association (ADA) provides guidance for cutoff values for fasting glucose and random glucose. The ADA defines fasting as no caloric intake for at least 8 hours. Fas ting plasma glucose results between 100 to 125 mg/dL indicate increased risk for diabetes (prediabetes). Fasting plasma glucose results greater than or equal to 126 mg/dL meet the criteria for diagnosis of diabetes. In the absence of unequivocal hyperglycemia, results should be confirmed by repeat testing. In a patient with classic symptoms of hyperglycemia or hyperglycemic crisis, random plasma glucose results greater than or equal to 200 mg/dL meet the criteria for diagnosis of diabetes. Reference: Standards of Medical Care in Diabetes 2016, Indian Diabetes Association. Diabetes Care. 2016.39(Suppl 1). LAB BUN 7-21 mg/dL BUN Low 6 LAB CRET 0.58-0.96 mg/dL Creatinine Low 0.46 LAB NA 136-144 mmol/L Sodium 137 LAB K 3.7-5.1 mmol/L Potassium 3.8 LAB CL 97-105 mmol/L Chloride 102 LAB CO2 22-30 mmol/L CO2 25 LAB AGAP 9-18 mmol/L Anion Gap 10 LAB CA 8.5-10.2 mg/dL Calcium, Total 9.2 LAB GFRAA eGFR- Amer. >60 LAB GFRNAA . eGFR-All Other Races >60 Result Comment: eGFR (Estimated GFR) Units of measure: mL/min/1.73 meters squared eGFR is derived from the reexpressed MDRD Study equation using the following parameters: serum creatinine, age, gender and race. The creatinine assay has been calibrated to be traceable to IDMS. An eGFR <60 mL/min/1.73m2 for >3 months is consistent with chronic kidney disease. Refer to KDOQI guidelines for clinical interpretation. In patients with unstable renal function, e.g. those with acute kidney injury, the eGFR may not accurately reflect actual GFR. Performed By: #### BMP, LIPNF, HBA1C #### [facility] [address] [place], [place] [address] LIPID PANEL, NONFAST Collected: 03/19/2018 Status: F Source: [place] 2:15 PM [facility] REPOSITORY TYPE CODE TESTS RESULT OUT OF REFERENCE UNITS RANGE LAB CHOLNF <200 mg/dL Total High Cholesterol NF 285 Result Comment: <200 mg/dL, Desirable 200-239 mg/dL, Borderline high >239 mg/dL, High LAB TRIGNF <150 mg/dL Triglycerides, NF High 227 Result Comment: <150 mg/dL, Normal 150-199 mg/dL, Borderline high 200-499 mg/dL, High >499 mg/dL, Very high LAB HDLNF >39 mg/dL HDL Cholesterol, NF 53 Result Comment: 40-59 mg/dL, Acceptable >59 mg/dL, High: Negative risk factor for coronary heart disease <40 mg/dL, Low: Positive risk factor for coronary heart disease LAB LDLNF <100 mg/dL LDL Cholesterol, High NF 187 Result Comment: <100 mg/dL, Optimal 100-129 mg/dL, Near optimal/above optimal 130-159 mg/dL, Borderline high 160-189 mg/dL, High >189 mg/dL, Very high Secondary prevention optimal LDL Cholesterol levels are recommended to be < 70 mg/dL LAB NOHDLN <130 mg/dL High Non HDL Chol, 232 NF Result Comment: <130 mg/dL, Optimal 130-159 mg/dL, Near optimal/above optimal 160-189 mg/dL, Borderline high 190-219 mg/dL, High >219 mg/dL, Very high Secondary prevention optimal non HDL Cholesterol levels are recommended to be < 100 mg/dL LAB VLDLNF <30 mg/dL VLDL Cholesterol, High NF 45 LAB TCHDLN <5.10 mg/dL T Chol/HDL Ratio High NF 5.38 LAB LDLHDN <2.54 mg/dL LDL/HDL Ratio, NF High 3.53 Result Comment: Reference: 1. National Cholesterol Education Program ATP III Guideline At-A-Glance Quick Desk Reference: National Heart, Lung, and Blood [place]. National Institutes of Health. 2001: NIH Publication No. 01-3305. 2. An International Atherosclerosis Society position paper: global recommendations for the management of dyslipidemia: executive summary, Atherosclerosis. 2014: 232(2):410-413. Performed By: #### BMP, LIPNF, HBA1C #### [facility] [employer] [address], [place] [id number] HEMOGLOBIN A1C Collected: 03/19/2018 Status: F Source: [place] 2:15 PM [facility] REPOSITORY TYPE CODE TESTS RESULT OUT OF REFERENCE UNITS RANGE LAB HGBA1C 4.3-5.6 % Hemoglobin A1c 5.2 Result Comment: Indian Diabetes Association guidelines indicate that patients with HgbA1c in the range 5.7-6.4% are at increased risk for development of diabetes, and intervention by lifestyle modification may be beneficial. HgbA1c greater or equal to 6.5% is considered diagnostic of diabetes. LAB HBA0 mg/dL Est. Average Glucose 103 Result Comment: eAG: (Estimated average glucose) is a calculated value from HgbA1c and is policy services representative of the average blood glucose level in the last 2-3 month period. Performed By: #### BMP, LIPNF, HBA1C #### [facility] [employer] [address] [place], [place] [id number] PROGRESS Observed: 03/19/2018 Status: COMPLETED Source: [place] 1:50 PM [facility] REPOSITORY HNO ID: [id number] Author: Ariana (Expansion Envelope Maker Hand) [employer] Service: (none) Author Type: Nurse Practitioner Type: Progress Notes Filed: 03/19/2018 3:14 PM Note Text: 03/19/2018 Patient presents with: Insurance Physical: for work SUBJECTIVE: This is a 32 year old that is here today for Above Complaints. No concerns. PAST MEDICAL HISTORY Diagnosis Date - Asthma during childhood - Complication of anesthesia felt high with Epidural - Disorder of pelvic girdle During Childbirth - Salivary gland stone follwed by ENT Dr. Wood ALLERGIES Seasonal Allergies; Ultram [Tramadol Hcl] MEDICATIONS Current Outpatient Prescriptions: [id number] ACID ORAL Take by mouth. folic acid 1 mg tablet Take 1 tablet by mouth once daily. prochlorperazine (COMPAZINE) 10 mg tablet Take 0.5-1 tablets by mouth every 6 hours as needed (nausea). famotidine (PEPCID) 40 mg tablet Take 1 tablet by mouth once daily. [id number] 27 mg iron-1 mg -374 mg CPKD Take 1 tablet by mouth once daily. No current facility-administered medications for this visit. Medications and allergies reviewed by this provider. 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* [employer] Social History Main Topics Smoking status: Never Smoker Smokeless tobacco: Never Used Alcohol use: Yes Comment: Rarely once every couple months Drug use: No Sexual activity: Yes Partners with: Male Comment: will be discussing options with [employer] AND [employer] OPENER Social History Narrative Lives with and daughter age 6 REVIEW OF SYSTEMS GENERAL: No weight loss, malaise or fevers HEENT: Negative for frequent or significant headaches, No changes in hearing or vision, no nose bleeds or other nasal problems NECK: Negative for lumps, goiter, pain and significant neck swelling RESPIRATORY: Negative for cough, hemoptysis, wheezing, COPD, dyspnea or shortness of breath CARDIOVASCULAR: Negative for chest pain, leg swelling, hypertension, CHF or palpitations, small amount of pedal edema- due to preganancy GI: No nausea, vomiting, or diarrhea : No history of dysuria, frequency or incontinence MUSCULOSKELETAL: Negative for joint pain or swelling, back pain or muscle pain SKIN: Negative for lesions, rash, and itching HEMATOLOGY/LYMPHOLOGY: Negative for prolonged bleeding, bruising easily or swollen nodes All other reviewed and negative other than HPI. OBJECTIVE: BP 134/78 (BP Site: Left Arm, BP Position: Sitting, BP Cuff Size: Regular Adult) Pulse 64 Resp 18 Ht 167 cm (5' 5.75) Wt 107 kg (236 lb) LMP 09/20/2017 (Approximate) BMI 38.38 kg/m? . Vital signs reviewed by this provider. APPEARANCE Well appearing, alert, in no acute distress, well-hydrated, well nourished. EYES PERRLA, conjunctiva and sclera normal. NECK Supple, no adenopathy; thyroid symmetric, normal size, no bruits HEART RRR with normal S1 and S2, no murmurs, no gallops, no JVD appreciated LUNG clear to auscultation ABDOMEN bowel sounds normoactive, no bruits, soft, non-tender, non-distended, no tenderness to palpation EXTREMITIES Extremities normal, No deformities, No skin discoloration and No edema SKIN Skin color, texture, turgor normal, no suspicious rashes or lesions ASSESSMENT/PLAN: 1. Encounter for biometric screening - ICD9: V72.85, ICD10: Z01.89 - follow-up yearly and as needed - LIPID PANEL, NONFASTING - HGB A1C - BASIC METABOLIC PNL Ariana Trejo, ROXANNE Prescription instructions reviewed with patient as applicable. Patient advised if symptoms do not improve or if symptoms worsen sooner, to contact their primary care physician. Potential red flag symptoms discussed with the patient. Reviewed appropriate action plan to take if red flag symptoms occur. Patient agreeable to treatment plan. CNOV Observed: 03/19/2018 Status: COMPLETED Source: [place] 1:40 PM [facility] REPOSITORY Office Visit (FAMPWS) ODIN BARTLETT ([id number]) 1985 F Date Time Provider Department 03/19/18 1:40 PM ARIANA TREJO (BACILIO) ROBYN During your visit today, we recorded the following information about you: Pulse Respiration Blood pressure Weight 64/minute 18/minute 134/78 107 kg Height 1.67 m Ariana Trejo APRN.CNP 03/19/2018 3:14 PM Signed 03/19/2018 Patient presents with: Insurance Physical: for work SUBJECTIVE: This is a 32 year old that is here today for Above Complaints. No concerns. PAST MEDICAL HISTORY Diagnosis Date - Asthma during childhood - Complication of anesthesia felt high with Epidural - Disorder of pelvic girdle During Childbirth - Salivary gland stone follwed by ENT Dr. Wood ALLERGIES Seasonal Allergies; Ultram [Tramadol Hcl] MEDICATIONS Current Outpatient Prescriptions: [id number] ACID ORAL Take by mouth. folic acid 1 mg tablet Take 1 tablet by mouth once daily. prochlorperazine (COMPAZINE) 10 mg tablet Take 0.5-1 tablets by mouth every 6 hours as needed (nausea). famotidine (PEPCID) 40 mg tablet Take 1 tablet by mouth once daily. [id number] 27 mg iron-1 mg -374 mg CPKD Take 1 tablet by mouth once daily. No current facility-administered medications for this visit. Medications and allergies reviewed by this provider. 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* [employer] Social History Main Topics Smoking status: Never Smoker Smokeless tobacco: Never Used Alcohol use: Yes Comment: Rarely once every couple months Drug use: No Sexual activity: Yes Partners with: Male Comment: will be discussing options with HAT AND CAP OPENER Social History Narrative Lives with and daughter age 6 REVIEW OF SYSTEMS GENERAL: No weight loss, malaise or fevers HEENT: Negative for frequent or significant headaches, No changes in hearing or vision, no nose bleeds or other nasal problems NECK: Negative for lumps, goiter, pain and significant neck swelling RESPIRATORY: Negative for cough, hemoptysis, wheezing, COPD, dyspnea or shortness of breath CARDIOVASCULAR: Negative for chest pain, leg swelling, hypertension, CHF or palpitations, small amount of pedal edema- due to preganancy GI: No nausea, vomiting, or diarrhea : No history of dysuria, frequency or incontinence MUSCULOSKELETAL: Negative for joint pain or swelling, back pain or muscle pain SKIN: Negative for lesions, rash, and itching HEMATOLOGY/LYMPHOLOGY: Negative for prolonged bleeding, bruising easily or swollen nodes All other reviewed and negative other than HPI. OBJECTIVE: BP 134/78 (BP Site: Left Arm, BP Position: Sitting, BP Cuff Size: Regular Adult) Pulse 64 Resp 18 Ht 167 cm (5' 5.75) Wt 107 kg (236 lb) LMP 09/20/2017 (Approximate) BMI 38.38 kg/m? . Vital signs reviewed by this provider. APPEARANCE Well appearing, alert, in no acute distress, well- hydrated, well nourished. EYES PERRLA, conjunctiva and sclera normal. NECK Supple, no adenopathy; thyroid symmetric, normal size, no bruits HEART RRR with normal S1 and S2, no murmurs, no gallops, no JVD appreciated LUNG clear to auscultation ABDOMEN bowel sounds normoactive, no bruits, soft, non-tender, non-distended, no tenderness to palpation EXTREMITIES Extremities normal, No deformities, No skin discoloration and No edema SKIN Skin color, texture, turgor normal, no suspicious rashes or lesions ASSESSMENT/PLAN: 1. Encounter for biometric screening - ICD9: V72.85, ICD10: Z01.89 - follow-up yearly and as needed - LIPID PANEL, NONFASTING - HGB A1C - BASIC METABOLIC PNL Ariana Trejo, PEOPLE GREETER.INFO SPECIALIST Prescription instructions reviewed with patient as applicable. Patient advised if symptoms do not improve or if symptoms worsen sooner, to contact their primary care physician. Potential red flag symptoms discussed with the patient. Reviewed appropriate action plan to take if red flag symptoms occur. Patient agreeable to treatment plan. Referring Provider: SELF [200] Allergies As of Date: 03/19/2018 Noted Allergy Reaction SEASONAL ALLERGIES 04/09/2016 5 - Intolerance Comments: Sinus issues and itchy eyes ULTRAM (TRAMADOL HCL) 11/06/2017 14 - Other: See Comments Comments: nausea and dizziness Date Reviewed: 03/19/2018 Reviewed by: Meri Yarbrough (Rusty) RUSTY Forde - Fully Assessed Reason for Visit: Insurance Physical [59] Cmt: for work Primary Visit Diagnosis:Encounter for biometric screening [Z01.89] Order(s):LIPID PANEL, NONFASTING [SQLIPNF] Order #: [id number] FUTURE HGB A1C [MEQQR2P] Order #: [id number] FUTURE BASIC METABOLIC PNL [SQBMP] Order #: [id number] FUTURE Prescriptions as of 03/19/2018 Sig: [id number] ACID * Take by mouth. FOLIC ACID 1 MG TABLET Take 1 tablet by mouth once d* PROCHLORPERAZINE MALEATE 10 M* Take 0.5-1 tablets by mouth e* FAMOTIDINE 40 MG TABLET Take 1 tablet by mouth once d* PRENAT.VIT 100-IRON 27 MG-FOL* Take 1 tablet by mouth once d* Problem List As Of Date 03/19/2018 Noted Resolved Obesity, Class II, BMI 35-39.9 E66.9 [E66.9] INVALID FOR* Pelvic pain in , antepartum [O26.899, *INVALID FOR* More... Nausea and vomiting in [O21.9] INVALID FOR* More... History of prolonged labor [Z87.59] INVALID FOR* More... History of depression, currently pre*INVALID FOR* More... Supervision of high risk in first tri*INVALID FOR* Obesity affecting in first trimester *INVALID FOR* Follow-up and Disposition History Recorded Encounter Status:Closed by ADELAIDALOGARIANA EASLEY CNP on 03/19/18 PROGRESS Observed: 02/24/2018 Status: COMPLETED Source: [place] 1:27 PM [facility] REPOSITORY HNO ID: [id number] Author: Jb Lora Service: (none) Author Type: Physician Type: Progress Notes Filed: 02/24/2018 1:27 PM Note Text: A lamb? fetus in utero with symmetric measurements Adequate growth (AGA). Estimated Date of Delivery: 06/24/18 EGA = 22w6d The anatomy appears normal. There are no evident malformations and /or effusions. No genetic markers are noted. The amniotic fluid volume is within normal limits. The sensitivity of ultrasound in the detection of malformations overall is approximately 35%. RECOMMENDATIONS: - Follow up ultrasound as clinically indicated Observed: 01/12/2018 Status: F Source: [place] URINE CULTURE 11:10 AM [facility] REPOSITORY Sp. Request/Comment: - Specimen received in preservative Culture Result - <10,000 CFU/ml Three or more organisms, no one type predominant, suggesting contamination during collection. Recollect if clinically indicated. Performed By: #### URCUL #### [facility] [address] [place], [place] [address] PROGRESS Observed: 12/18/2017 Status: COMPLETED Source: [place] 2:36 PM [facility] REPOSITORY HNO ID: [id number] Author: Jb Lora Service: (none) Author Type: Physician Type: Progress Notes Filed: 12/18/2017 2:37 PM Note Text: A single intrauterine gestational sac is noted with a regular outline. There is no decidual hemorrhage. The yolk sac is visualized and shows normal shape and echogenicity. A living single fetus is noted. The heart rate is within normal range. The CRL corresponds to the gestational age. Estimated Date of Delivery: 06/24/18 EGA = 13w1d Negative NT screen for Trisomy 21. The sensitivity of nuchal translucency measurement for Trisomy 21 is ~60%. The anatomy appears normal in the areas visualized. RECOMMENDATIONS: - The patient requested the sequential screening. The test has been ordered - Ultrasound examination at 18 to 20 weeks SEQUENT SCRN FIRST Collected: 12/18/2017 Status: F Source: [place] PAT[place] 1:40 PM [facility] REPOSITORY TYPE CODE TESTS RESULT OUT OF REFERENCE UNITS RANGE LAB SE1PAP MoM 2.14 SE1 MATTIE A LAB SE1HCG MoM 0.87 SE1 hCG LAB SE1INT Final result pending second Final trimester SE1 result pending sample Interp second trimester sample LAB SE1SDN SE1 Scrn <1:52918 Rsk Dn Synd LAB SE1ADN 1:430 SE1 Age Rsk Dn Synd LAB SE1STR SE1 Scr <1:58230 Rsk Trsmy18 LAB SE1ATR SE1 Age 1:1800 Rsk Trsmy18 LAB SE1RS View Seq Scrn results in First Trim Scanned Documents link when available. LAB SEQLRV SEQ Staff Reviewed by Review Edilma Solitario, Ph.D. Performed By: #### SEQL1 #### [facility] [address] [place], [place] [address] CBC Collected: 12/18/2017 Status: F Source: [place] 12:36 PM [facility] REPOSITORY TYPE CODE TESTS RESULT OUT OF REFERENCE UNITS RANGE LAB WBC 3.70-11.00 k/uL WBC High 11.89 LAB RBC 3.90-5.20 m/uL RBC 4.20 LAB HGB 11.5-15.5 g/dL Hemoglobin 12.8 LAB HCT 36.0-46.0 % Hematocrit 39.7 LAB MCV 80.0-100.0 fL MCV 94.5 LAB MCH 26.0-34.0 pG MCH 30.5 LAB MCHC 30.5-36.0 g/dL MCHC 32.2 LAB RDWCV 11.5-15.0 % RDW-CV 13.0 LAB PLTCT 150-400 k/uL Platelet Count 378 LAB MPV 9.0-12.7 fL MPV 10.8 LAB ABSNUC <0.01 k/uL Absolute nRBC <0.01 Performed By: #### CBC, SYPHGX, RUBIGG, HBSAG, HIV12C #### [facility] [address] [place] [address] SYPHILIS IGG WITH Collected: 12/18/2017 Status: F Source: [facility] 12:36 PM [facility] REPOSITORY TYPE CODE TESTS RESULT OUT OF REFERENCE UNITS RANGE LAB SYPHQL Nonreactive Syphilis IgG, Nonreactive Qual Result Comment: No serological evidence of infection with T. pallidum. LAB SYPHLG AI Syphilis IgG <0.2 Result Comment: Antibody index is interpreted as follows: Non reactive SPECIMENS <=0.8 Weak reactive SPECIMENS 0.9 to 5.9 Reactive SPECIMENS >=6.0 Performed By: #### CBC, SYPHGX, RUBIGG, HBSAG, HIV12C #### [place] [address] RUBELLA IGG ANTIBODY Collected: 12/18/2017 Status: F Source: [place] 12:36 PM [facility] REPOSITORY TYPE CODE TESTS RESULT OUT OF RANGE REFERENCE UNITS LAB RUBGQL Negative Abnormal Rubella IgG Positive Alert Ab, Qual Result Comment: Sample is considered positive for IgG antibodies to rubella virus. A positive result indicates previous exposure to Rubella virus or vaccination. LAB RUBQNT Index Value Rubella IgG Ab 2.50 Result Comment: Index values are interpreted as follows: Negative specimens <0.90 Equivocol specimens 0.90 to 0.99 Positive specimens >0.99 The magnitude of the measured result is not indicative of the amount of antibody present. Performed By: #### CBC, SYPHGX, RUBIGG, HBSAG, HIV12C #### [facility] [address] [place] [address] HEPATITIS B SURF. AG Collected: 12/18/2017 Status: F Source: [place] 12:36 PM [facility] REPOSITORY TYPE CODE TESTS RESULT OUT OF REFERENCE UNITS RANGE LAB HBSAG Negative Hepatitis B Negative Surf. Ag Performed By: #### CBC, SYPHGX, RUBIGG, HBSAG, HIV12C #### [place] [address] [place] [id number] HIV 12 COMBO (AG/AB) Collected: 12/18/2017 Status: F Source: [place] 12:36 PM [facility] REPOSITORY TYPE CODE TESTS RESULT OUT OF REFERENCE UNITS RANGE LAB HVAGAB Non Reactive HIV Non Reactive 12 Ag/Ab Result Comment: (NOTE) HIV Information: [place] Rev. Code 3701.243(E): This information has been disclosed to you from confidential records protected from disclosure by state law. You shall make no further disclosure of this information without the specific, written, and informed release of the individual to whom it pertains, or as otherwise permitted by state law. A general authorization for the release of medical or other information is not sufficient for the purpose of the release of HIV test results or diagnoses. Performed By: #### CBC, SYPHGX, RUBIGG, HBSAG, HIV12C #### [place] [address] TYPE AND SCR,PRENATL Collected: 12/18/2017 Status: F Source: [place] 12:36 PM [facility] REPOSITORY TYPE CODE TESTS RESULT OUT OF REFERENCE UNITS RANGE LAB %ABR A ABO/RH(D) POSITIVE LAB % Antibody NEG Screen Performed By: #### TSPN #### [place] [address] TOXICOLOGY SCREEN,UR Collected: 11/19/2017 Status: F Source: [place] 9:45 AM [facility] REPOSITORY TYPE CODE TESTS RESULT OUT OF REFERENCE UNITS RANGE LAB UPCP2 Negative Negative Phencyclidin e, Urine Result Comment: Cutoff threshold at 25 ng/mL. LAB UBENZ2 Negative Benzodiazepines, Ur Negative Result Comment: Cutoff threshold at 200 ng/mL. LAB UCOC2 Negative Cocaine, Negative Urine Result Comment: Cutoff threshold at 300 ng/mL. LAB UAMPH2 Negative Amphetamines, Urine Negative Result Comment: Cutoff threshold at 1000 ng/mL. LAB UTHC2 Negative Cannabinoids, Urine Negative Result Comment: Cutoff threshold at 50 ng/mL. LAB UOPI2 Negative Opiates, Negative Urine Result Comment: Cutoff threshold at 300 ng/mL. LAB UBARB2 Negative Barbiturates, Urine Negative Result Comment: Cutoff threshold at 200 ng/mL. LAB UETOH <11 mg/dL <11 Ethanol, Urine LAB UOXYC Negative Oxycodone, Negative Urine Result Comment: Cutoff threshold at 100 ng/mL. Comment: Immunoassay screen only. Cross reactivity with other substances can occur with immunoassay screening. Detection of any drug(s) in this urine toxicology panel is presumptive only. These tests are for med ical purposes only and should not be used for compliance monitoring, legal, or forensic use. Samples should be within normal physiological conditions (e.g. pH). This assay does not include adulteration/specimen validity testing. In clinical settings, confirmatory testing is at the practitioner's discretion [1]. If clinically indicated, confirmation by high specificity, quantitative methodology, which includes adulteration/spec imen validity testing, may be requested on the same specimen through Client Services ([phone]) if contacted within 48 hours of initial testing. [1]Substance Abuse and Mental Health Services Administration (2012). Clinical Drug Testing in Primary Care Technical Assistance Publication Series 32. Department of Health and Human Services, [place], p.10. These tests were developed and their performance characteristics determined by [facility]'s [facility] [place] ( [facility]). They have not been cleared or a pproved by the FDA. [facility] is regulated under CLIA as qualified to perform high complexity testing. These tests are used for clinical purposes. They should not be regarded as investigational or for research. Performed By: #### UTOX2 #### [facility] [employer] [address], [place] [address] Observed: 11/18/2017 Status: F Source: [place] URINE CULTURE 1:49 PM [facility] REPOSITORY Sp. Request/Comment: - Specimen received in preservative Culture Result - No growth (<1,000 CFU/ml) Performed By: #### URCUL #### [facility] [address] [place], [place] [address] GC/CHLAMYDIA AMPLIF Collected: 11/18/2017 Status: F Source: [place] 1:30 PM [facility] REPOSITORY TYPE CODE TESTS RESULT OUT OF REFERENCE UNITS RANGE LAB GCCTSR GC/Chlam Amp [facility]ervix Source LAB GCAMPL GC Negative Amplification for Neisseria gonorrhoeae by amplification. LAB CLAMPL Chlamydia Negative Amplif for Chlamydia trachomatis by amplification. Performed By: #### GCCT #### [facility] [address] [place], [place] [address] PROGRESS Observed: 11/18/2017 Status: COMPLETED Source: [place] 1:09 PM [facility] REPOSITORY HNO ID: [id number] Author: Oscar Haro) Rajendra Service: (none) Author Type: Chromosomal Disorders Counselor Type: Progress Notes Filed: 11/18/2017 4:23 PM Note Text: Outreach Manager offered: Patient declines. INITIAL OB ASSESSMENT OB Provider: Oscar Drew CNM HPI: Odin Bartlett is a 32 year old female here to establish Obstetrical Care. Patient's last menstrual period was 09/20/2017. from OB Dating Form. Cycle length: 30 days Approximate LMP 09/20/17. REYNA by 1st trimester U/S 7w6d on 11/11/17. Currently 8w6d today Complaints: nausea and vomiting. Seen in ER on 11/17/17, given IV fluids, Zofran. Feeling better today and no N/V today. was unplanned but accepted. Obstetric History T1 L1 SAB0 TAB0 Ectopic0 Multiple0 Live Births1 Prior : never History of 4th degree laceration: No Patient's Risk Screening for delivery: History of abnormal pap: No Prior treatment for cervical dysplasia: none. 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 Wood PAST SURGICAL HISTORY Procedure Laterality Date - TONSILLECTOMY HX age 5 Current Outpatient Prescriptions on File Prior to Visit: ondansetron orally disintegrating (ZOFRAN ODT) 4 mg disintegrating tablet Take 1 tablet by mouth every 8 hours as needed for Nausea/Vomiting (failed VitB6/Unisom). DISSOLVE ON TONGUE No current facility-administered medications on file prior to visit. Review of Systems: GENERAL: Negative for: Fever or Chills HEENT: Negative for: Headache, Impaired Vision, Ringing in Ears, Nosebleeds NECK: Negative for: Swelling, Pain, Stiffness RESPIRATORY: Negative for: Cough, Shortness of breath, Wheezing GASTROINTESTINAL: Negative for: Heartburn, Constipation, Diarrhea, Blood in stool MUSCULOSKELETAL: Negative for: Muscle or joint pain, stiffness, Joint swelling NEUROLOGIC/PSYCHIATRIC: Negative for: Weakness, Paralysis, Numbness, Tingling, Tremor, Anxiety, Depression, Memory loss SKIN: Negative for: Rash, Itching GENITOURINARY: Negative for: vaginal itching, vaginal discharge, hematuria or dysuria PHYSICAL EXAM: BP 116/64 Ht 5' 6 (1.68m) Wt 219 lb (99.3kg) LMP 09/20/2017 BMI 35.36 kg/(m2). GENERAL: pleasant female in no apparent distress DERMATOLOGY: Normal, without lesions, non-icteric and non-hirsute NECK: Supple, full range of motion, no adenopathy and thyroid normal CHEST: Normal inspiratory effort BREAST: soft, non-tender, symmetric, no dominant mass, normal nipple-areolar complex, no lymphadenopathy and no nipple discharge ABDOMEN: soft, non-tender and no masses NEURO: alert and oriented x3,exam grossly non-focal PELVIS: External genitalia normal without lesions. Perineal body intact. No vaginal or cervical lesions. Cervix closed. Uterus 8 week size. No adnexal masses or tenderness. Clinical Pelvimetry: Pelvimetry clinically assessed as adequate Limited OB ultrasound exam: not performed ASSESSMENT: 32 year old at 8w6d wks gestational age by 1st trimester U/S PLAN: 1) Patient oriented to practice. Discussed nutrition, folic acid supplementation, dietary guidelines, exercise, smoking, alcohol, caffeine, and drug use. Discussed routine OB labs including STD/HIV. 1hr GCT ordered, unable to do today due to N/V Discussed aneuploidy screening options including serum screening and nuchal translucency. She will check with insurance and see if she wants this done. Will call. CF carrier screening discussed and declined. She will check with insurance to see if she wants this done and will call. 2) Diclegis for N/V and Zofran PRN. Reviewed risks vs. Benefits of Zofran. To try Diclegis and limit Zofran use. 3) Not taking PNV. Rx given for folic acid 1mg at this time. Once N/V improved ok to start PNV, eRx sent. Follow up in 4 weeks or sooner prn. Oscar Drew APRN.CNM EMERGENCY DEPARTMENT Observed: 11/17/2017 Status: F Source: [place] SUMMARY 6:26 PM [facility] REPOSITORY [facility] Medical Records Department [address] [place] [address] Emergency Department Summary 11/17/17 1633 MR#: [id number] Acct: [id number] Name: ODIN BARTLETT Rep #: [id number] : 1985 32 From: Marlene Keating MD PCP: Jayson Child MD Status: REG ER - ER Visit Summary Date of Service: 11/17/17 Chief Complaint: Nausea, vomiting. History of Present Illness: The patient is a 32 F presenting with nausea, vomiting. She states this has been ongoing for the past 2 weeks. She is 8 weeks . She states she vomited 3 times today. She states she has been vomiting daily for the past 2 weeks. She is . She has had no vaginal bleeding. She had an ultrasound last week at her OB office which showed an intrauterine . She denies other complaints. She went to her PLATE GAUGER office today and was advised to come to the ED for IV fluids. Physical Examination: Vitals are stable. Patient is afebrile. Alert no acute distress. HEENT exam is unremarkable. Neck is supple. Lungs are clear and equal bilaterally. Heart is regular rate and rhythm. Abdomen is soft nontender nondistended. No guarding or rebound. Extremities are unremarkable. Skin is warm and dry. Remainder of exam is unremarkable. Emergency Department Course and Treatment: Patient is given IV fluids, Zofran. CBC shows a white count 11.3. Chemistries unremarkable. Patient is feeling much improved in the emergency department. She is able to tolerate p.o. in the emergency department. Her PLATE GAUGER called her in [facility] and she will mushroom picker this prescription. She has an appointment with her PLATE GAUGER tomorrow for follow-up. She is advised return to ED for any worsening complaints. Disposition: Discharge home Impression: Vomiting in This note was generated with [employer] dictation software. It may contain incorrect words, spelling, and punctuation that were not noted in review of the chart prior to signing ED Disposition - Plan for ED Patient: Chief Complaint: Nausea/Vomiting Instructions: ED Preg Morning Sickness Referrals: Tejinder Webster DO [NON CLINICAL AFFILIATE] - Georgina Cisneros MD [STAFF PHYSICIAN] - What to do if you have Problems For any increased pain, shortness of breath, bleeding, nausea or vomiting, chest pain, or any unexpected problems, contact your Primary Care Provider. Call [facility] ([phone]) or report to the closest Emergency Room. Call 911 if necessary. 11/17/171825 <Electronically signed by Marlene Keating MD> Date Marlene Keating MD Cosigner Signature (If Indicated): Date CC: Jayson Child MD DISCHARGE INSTRUCTION Observed: 11/17/2017 Status: F Source: [place] 6:15 PM [facility] REPOSITORY [facility] Medical Records Department [address] [place] [address] Discharge Instruction 11/17/171814 MR#: [id number] Acct: [id number] Name: ODIN BARTLETT Rep #: [id number] : 1985 32 From: Marlene Keating MD PCP: Jayson Child MD Status: REG ER ED Disposition - Plan for ED Patient: Chief Complaint: Nausea/Vomiting Instructions: ED Preg Morning Sickness Referrals: Webster,Tejinder, DO [NON CLINICAL AFFILIATE] - Georgina Cisneros MD [STAFF PHYSICIAN] - What to do if you have Problems For any increased pain, shortness of breath, bleeding, nausea or vomiting, chest pain, or any unexpected problems, contact your Primary Care Provider. Call [facility] ([phone]) or report to the closest Emergency Room. Call 911 if necessary. 11/17/175 <Electronically signed by Marlene Keating MD> Date Marlene Keating MD Cosigner Signature (If Indicated): Date CC: Jayson Child MD CBC W/DIFF, AUTOMATED Collected: 11/17/2017 Status: F Source: [place] 4:52 PM [facility] REPOSITORY TYPE CODE TESTS RESULT OUT OF RANGE REFERENCE UNITS LAB L100.1000 4.4-11.0 K/mm3 High WBC 11.3 LAB L100.1200 4.2-5.4 M/mm3 Low RBC 3.91 LAB L100.1300 12.0-15.0 g/dl Normal HGB 12.4 LAB L100.1400 37-47 % Low HCT 35.9 LAB L100.1500 81-99 fL Normal MCV 91.8 LAB L100.1600 27.0-32.0 pg Normal MCH 31.7 LAB L100.1700 32-36 g/gl Normal MCHC 34.5 LAB L100.1810 11.6-14.6 % Normal RDW CV 12.5 LAB L100.1820 35.1-43.9 fl Normal RDW SD 41.1 LAB L100.1900 150-450 K/mm3 Normal PLT 344 LAB L100.2000 6.2-12.0 fl Normal MPV 9.7 LAB L100.2100 47-70 % High NEUT% 70.5 LAB L100.2200 19-41 % Normal LY% 21.8 LAB L100.2300 0-10 % Normal MONO% 6.6 LAB L100.2400 0-5 % Normal EO% 0.7 LAB L100.2500 0-1 % Normal BASO% 0.3 LAB L100.2550 0.0-0.9 % Normal IM GRAN % 0.100 Result Comment: IG% - Immature Granulocytes (promyelocytes, myelocytes and metamyelocytes) > 1% indicates that a LEFT SHIFT is Present. LAB L100.2620 2.0-7.7 X10 3/uL High Absolute Neut 8.0 LAB L100.2720 0.83-4.51 X10 3/ul Normal Absolute Lymph 2.47 Performed By: #### L100.0100 #### [facility] [address] [place], [place], [address] COMPREHENSIVE METABOLIC Collected: 11/17/2017 Status: F Source: [facility] [facility] 4:52 PM [facility] REPOSITORY TYPE CODE TESTS RESULT OUT OF RANGE REFERENCE UNITS LAB L501.0100 74-106 mg/dL Normal GLU 97 Result Comment: Please note revised GLUCOSE reference range effective 2017. LAB L501.1000 7-18 mg/dL Normal BUN 11 LAB L501.1100 0.55-1.02 mg/dL Low CREAT,SERUM 0.46 Result Comment: The validity of the calculated GFR AND GFRAA in patients over 70 years has not been determined. Clinical correlation is essential. LAB L501.1110 >60 mL/min Normal EST GFR 169 Result Comment: Non- GFR Calc LAB L501.1115 >60 mL/min Normal EST GFR - AA 204 Result Comment: GFR Calc LAB L501.1255 ml/min Normal Estimated CRCL 165.89 LAB L501.1300 10-20 RATIO High BUN/CRE 24.0 LAB L501.1500 6.4-8. g/dL 2 T PROT Normal 6.8 LAB L501.1800 3.2-5. g/dL 0 ALB Normal 3.6 LAB L501.1950 2.2-4. g/dL 2 GLOB Normal 3.2 LAB L501.2000 0.9-2. RATIO 4 A/G Normal 1.1 LAB L501.2200 8.5-10 mg/dL .1 CA Normal 9.4 LAB L501.4100 15-37 U/L AST Normal 19 LAB L501.4305 45-117 U/L ALK P Normal 57 LAB L501.4405 13-56 U/L ALT Normal 25 LAB L501.4600 0.20-1 mg/dL .00 T BILI Normal 0.20 LAB L501.5300 136-14 mmol/L 5 NA Normal 140 LAB L501.5600 3.5-5. mmol/L 1 K Normal 3.8 LAB L501.5900 98-107 mmol/L CL Normal 107 LAB L501.6100 21.0-3 mmol/L 2.0 CO2 Normal 26.0 LAB L501.6200 5-15 GAP Normal 7 Performed By: #### L500.4050 #### [facility] [address] [place], [place], [address] PROGRESS Observed: 11/06/2017 Status: COMPLETED Source: [place] 11:45 AM [facility] REPOSITORY HNO ID: [id number] Author: Kaylah Velasquez RN Service: (none) Author Type: (none) Type: Progress Notes Filed: 11/06/2017 12:00 PM Note Text: #: 1, Date: [birth year], Sex: Female, Weight: 7 lb 2 oz (3.232 kg), GA: 38w0d, Delivery: Vaginal, Spontaneous Delivery, Apgar1: None, Apgar5: None, Living: Living, Comments: Long labor-40 hours and 5 hours of pushing, pelvic girdle pain for 7 months #: 2, Date: None, Sex: None, Weight: None, GA: None, Delivery: None, Apgar1: None, Apgar5: None, Living: None, Comments: None CNNURSE Observed: 11/06/2017 Status: COMPLETED Source: [place] 11:00 AM [facility] REPOSITORY Nurse Visit (WOOB) ODIN BARTLETT ([id number]) 1985 F Date Time Provider Department 11/06/17 11:00 AM [facility] RUTH ACEVES During your visit today, we recorded the following information about you: Last Period 09/20/17 Kaylah Velasquez RN 11/06/2017 11:26 AM Signed SEQUENTIAL SCREENINGS The [facility] offers sequential screenings for women who are interested in screenings for chromosomal abnormalities and certain defects during a . The sequential screen combines ultrasound and blood tests to determine the risk of chromosomal abnormalities, including Down's Syndrome (Trisomy 21) and Trisomy 18, as well as open neural tube defects including spina bifida. Ultrasound examination is performed between 11 weeks and 13 weeks gestational age. Blood tests are drawn after the ultrasound and again later in the between 15 and 21 weeks gestational age. Please let your physician know if you are interested in this testing. It will require an appointment with our echo technician. This is not an ultrasound performed by a physician in our office during a routine visit. SIGNS AND SYMPTOMS OF LABOR 1. Contractions every 10 minutes or more often 2. Clear, pink, or brownish fluid (water) leaking from vagina 3. Feeling that baby is pushing down, pressure 4. Low, dull backache 5. Cramps that feel like a period 6. Cramps with or without diarrhea If you notice any of the above symptoms, contact our office at [phone] and ask to speak with a nurse. After hours, you can call doctors registry at [phone] OR call [facility] at [phone] and ask to have the doctor motion study engineer paged. If you consider this an emergency, dial 9-1-1 or go to your nearest emergency department. Cord-Blood Banking Up until recently, the umbilical cord--along with the blood that remained in it after a baby was born and the cord cut--was simply discarded by the hospital. Then, in the late 1980s, researchers discovered that cord blood possessed unusual properties that made it useful in the treatment of patients with some cancers and other illnesses. While the actual process of collecting cord blood is straightforward, many parents are not even aware that this option now exists, much less familiar with all the issues involved. The case for saving your baby's cord blood The blood running back and forth between your baby and the placenta is full of immature cells called stem cells. Unlike embryonic stem cells, which have the ability to develop into any type of body cell, cord-blood stem cells already are locked into a certain, vital function: making all the different components of the blood, such as platelets, white blood cells, and red blood cells-serving, in effect, like bone marrow. When transfused into a patient whose own blood cells have faulty genetic coding or have been destroyed by chemotherapy or other cancer treatments, the cord-blood cells can implant themselves in the bone marrow and generate legions of new, healthy cells. These days, cord-blood transplants most commonly are used in cancer patients when a donor can't be found for a bone-marrow transplant. The treatment is particularly effective in young patients-the [facility] Cord Blood Bank reports a 70 percent success rate in children, but only 20 to 40 percent in adults. Researchers envision improving those odds and see many future applications as well, such as curing sickle cell disease and other blood-related genetic illnesses. So there is a possibility that your child, or someone else, may need these super-healthy and versatile cells one day. The drawbacks Aside from not knowing about this medical option, the main reason most people do not save their baby's stem cells is cost. In a private blood bank, the initial costs run from $275 to $1,500. Most also charge a yearly storage fee of $50 to $95. The advantage of using a private bank is that your sample is saved for only you to use. An alternative to private banking Public cord-blood [place] are an alternative. These cost no money to use, but your sample is not specifically saved for you. Another person with a more immediate need may use it. If the time should come that you need stem cells, yours may still be available, or you may use donations from other people without charge. You also can direct your sample to go to a relative with an immediate need if the blood type matches. Anyone else needing to use stem cells from a public bank who has not been a donor must pay for it, sometimes tens of thousands of dollars. Will my family benefit from saving stem cells? Right now, situations in which stem cells would be helpful are quite rare. As mentioned earlier, stem-cell transplants are most commonly used for rare genetic conditions and for some types of cancer, including leukemia and lymphoma. And even with these present uses, many questions remain. In cancer treatment, for example, some researchers are concerned about the wisdom of transplanting back into the child the same cells that already showed a propensity to become malignant. Doctors also aren't sure if the number of cells taken at the time of would be enough to treat a full-grown 16-year-old. It is also not completely clear how active the cells would be after years of being stored. The treatment is so new and rare, we just don't have the data yet to resolve these important issues. What do the experts say? The [employer] encourages philanthropic blood banking in public [place], but only for families with a current or potential need. Blood-bank proponents encourage any kind of banking, pointing out that research is getting closer and closer to many diverse, live-saving applications. How do I decide? Each family must weigh the pros and cons for themselves. Some families say that any cost is worth their peace of mind. Others say that in the face of uncertainty about the effectiveness of the treatment, they will use their resources elsewhere. Some choose the middle ground of donating publicly, knowing that their sample might benefit another family, if not themselves. For more information, ask your doctor or nurse, and be sure to check out our article on the technical aspects of cord-blood banking. Technical Aspects of Cord-Blood Banking If you are interested in storing your baby's umbilical-cord blood because of its possible use in emerging medical treatments, you must make arrangements with a blood bank before your child is born. The collection procedure is quite simple: After delivery of the baby, the umbilical cord is clamped and cut in the usual way. The blood that remains in the umbilical-cord vessels is then collected in sterile containers. The blood may be removed from the cord with a large needle or allowed to flow freely, depending on the company's collection system. The containers may look like large test tubes or like the plastic bags used in a blood bank. It does not cause the mother or the baby any pain to collect the blood, and no blood is taken that the baby needs at the moment. The nurse, supervisor fabrication and assembly, or physician will then label the samples, check them over with you, and package them for a special pickup arranged with a commercial carrier. When the blood arrives at the blood-bank facility, it is processed and the parents are notified. It is then kept in an advanced storage system for years. How do I know that my sample is safe? Power outages and bankruptcies potentially could threaten any organization, but so far none have been reported. It is to be hoped that the scientists in these s[place] would arrange for safe transfer to another facility if the need arose. YOU MUST MAKE ARRANGEMENTS AHEAD OF TIME! Public cord-blood [place]--DONATION: [employer] [phone] [facility]'s Placental Blood Program, [facility] Umbilical Cord Blood Bank, Private cord-blood s[place]--SAVING FOR YOUR OWN USE: [employer], (I think this is the least expensive) [employer] [phone] [employer], [phone]) [employer] [place] Cord Blood [facility], [phone] 700-CORD Cells, [phone] [place] [facility], Cord Blood Registry, [phone]) [employer], An Internet search may provide you with additional listings. Kaylah Velasquez RN 11/06/2017 12:00 PM Signed #: 1, Date: [birth year], Sex: Female, Weight: 7 lb 2 oz (3.232 kg), GA: 38w0d, Delivery: Vaginal, Spontaneous Delivery, Apgar1: None, Apgar5: None, Living: Living, Comments: Long labor-40 hours and 5 hours of pushing, pelvic girdle pain for 7 months #: 2, Date: None, Sex: None, Weight: None, GA: None, Delivery: None, Apgar1: None, Apgar5: None, Living: None, Comments: None Referring Provider: SELF [200] Allergies As of Date: 11/06/2017 Noted Allergy Reaction SEASONAL ALLERGIES 04/09/2016 5 - Intolerance Comments: Sinus issues and itchy eyes ULTRAM (TRAMADOL HCL) 11/06/2017 14 - Other: See Comments Comments: nausea and dizziness Date Reviewed: 11/06/2017 Reviewed by: Kaylah Velasquez RN - Fully Assessed Reason for Visit: Care [86] Cmt: Pre-New OB Primary Visit Diagnosis:Supervision of other high risk , antepartum [O09.899] Other Visit Diagnoses: with uncertain dates, antepartum [Z34.90] Pelvic pain in [O26.899, R10.2] Pelvic pain in , antepartum [O26.899, R10.2] Nausea and vomiting in [O21.9] History of prolonged labor [Z87.59] History of depression, currently [O99.89, Z86.59] Order(s):JESSICA PT ED PLATE GAUGER [] Order #: [id number]: 1 FUTURE JESSICA PT ED ANESTHESIA [[id number]] Order #: [id number]: 1 FUTURE JESSICA PT ED PLATE GAUGER [] Order #: [id number]: 1 FUTURE JESSICA WHAT TO EXPECT DURING YOUR HOSPITAL STAY [] Order #: [id number]: 1 FUTURE JESSICA PT ED PLATE GAUGER [] Order #: [id number]: 1 FUTURE JESSICA PT ED PLATE GAUGER [] Order #: [id number]: 1 FUTURE JESSICA PT ED PLATE GAUGER [] Order #: [id number]: 1 FUTURE JESSICA PT ED PLATE GAUGER [] Order #: [id number]. #:[id number]: 1 JESSICA PT ED ANESTHESIA [[id number]] Order #: [id number]. #:[id number]: 1 JESSICA PT ED PLATE GAUGER [] Order #: [id number]. #:[id number]: 1 JESSICA WHAT TO EXPECT DURING YOUR HOSPITAL STAY [] Order #: [id number]. #:[id number]: 1 JESSICA PT ED PLATE GAUGER [] Order #: [id number]. #:[id number]: 1 JESSICA PT ED PLATE GAUGER [] Order #: [id number]. #:[id number]: 1 JESSICA PT ED PLATE GAUGER [[id number]] Order #: [id number]. #:[id number]: 1 OBSTETRIC ULTRASOUND WHI [[id number]] Order #: [id number]: 1 Prescriptions as of 11/06/2017 Sig: NAPROXEN 500 MG TABLET Take 1 tablet by mouth twice * Problem List As Of Date 11/06/2017 Noted Resolved Obesity, Class II, BMI 35-39.9 E66.9 [E66.9] INVALID FOR* Pelvic pain in , antepartum [O26.899, *INVALID FOR* More... Nausea and vomiting in [O21.9] INVALID FOR* More... History of prolonged labor [Z87.59] INVALID FOR* More... History of depression, currently pre*INVALID FOR* More... Other instructions from your clinician: SEQUENTIAL SCREENINGS The [facility] offers sequential screenings for women who are interested in screenings for chromosomal abnormalities and certain defects during a . The sequential screen combines ultrasound and blood tests to determine the risk of chromosomal abnormalities, including Down's Syndrome (Trisomy 21) and Trisomy 18, as well as open neural tube defects including spina bifida. Ultrasound examination is performed between 11 weeks and 13 weeks gestational age. Blood tests are drawn after the ultrasound and again later in the between 15 and 21 weeks gestational age. Please let your physician know if you are interested in this testing. It will require an appointment with our echo technician. This is not an ultrasound performed by a physician in our office during a routine visit. SIGNS AND SYMPTOMS OF LABOR 1. Contractions every 10 minutes or more often 2. Clear, pink, or brownish fluid (water) leaking from vagina 3. Feeling that baby is pushing down, pressure 4. Low, dull backache 5. Cramps that feel like a period 6. Cramps with or without diarrhea If you notice any of the above symptoms, contact our office at [phone] and ask to speak with a nurse. After hours, you can call doctors registry at [phone] OR call [facility] at [phone] and ask to have the doctor motion study engineer paged. If you consider this an emergency, dial 9-1-1 or go to your nearest emergency department. Cord-Blood Banking Up until recently, the umbilical cord--along with the blood that remained in it after a baby was born and the cord cut--was simply discarded by the hospital. Then, in the late , researchers discovered that cord blood possessed unusual properties that made it useful in the treatment of patients with some cancers and other illnesses. While the actual process of collecting cord blood is straightforward, many parents are not even aware that this option now exists, much less familiar with all the issues involved. The case for saving your baby's cord blood The blood running back and forth between your baby and the placenta is full of immature cells called stem cells. Unlike embryonic stem cells, which have the ability to develop into any type of body cell, cord-blood stem cells already are locked into a certain, vital function: making all the different components of the blood, such as platelets, white blood cells, and red blood cells-serving, in effect, like bone marrow. When transfused into a patient whose own blood cells have faulty genetic coding or have been destroyed by chemotherapy or other cancer treatments, the cord-blood cells can implant themselves in the bone marrow and generate legions of new, healthy cells. These days, cord-blood transplants most commonly are used in cancer patients when a donor can't be found for a bone-marrow transplant. The treatment is particularly effective in young patients- the [facility] Cord Blood Bank reports a 70 percent success rate in children, but only 20 to 40 percent in adults. Researchers envision improving those odds and see many future applications as well, such as curing sickle cell disease and other blood-related genetic illnesses. So there is a possibility that your child, or someone else, may need these super-healthy and versatile cells one day. The drawbacks Aside from not knowing about this medical option, the main reason most people do not save their baby's stem cells is cost. In a private blood bank, the initial costs run from $275 to $1,500. Most also charge a yearly storage fee of $50 to $95. The advantage of using a private bank is that your sample is saved for only you to use. An alternative to private banking Public cord-blood [place] are an alternative. These cost no money to use, but your sample is not specifically saved for you. Another person with a more immediate need may use it. If the time should come that you need stem cells, yours may still be available, or you may use donations from other people without charge. You also can direct your sample to go to a relative with an immediate need if the blood type matches. Anyone else needing to use stem cells from a public bank who has not been a donor must pay for it, sometimes tens of thousands of dollars. Will my family benefit from saving stem cells? Right now, situations in which stem cells would be helpful are quite rare. As mentioned earlier, stem-cell transplants are most commonly used for rare genetic conditions and for some types of cancer, including leukemia and lymphoma. And even with these present uses, many questions remain. In cancer treatment, for example, some researchers are concerned about the wisdom of transplanting back into the child the same cells that already showed a propensity to become malignant. Doctors also aren't sure if the number of cells taken at the time of would be enough to treat a full-grown 16-year-old. It is also not completely clear how active the cells would be after years of being stored. The treatment is so new and rare, we just don't have the data yet to resolve these important issues. What do the experts say? The [employer] encourages philanthropic blood banking in public [place], but only for families with a current or potential need. Blood-bank proponents encourage any kind of banking, pointing out that research is getting closer and closer to many diverse, live-saving applications. How do I decide? Each family must weigh the pros and cons for themselves. Some families say that any cost is worth their peace of mind. Others say that in the face of uncertainty about the effectiveness of the treatment, they will use their resources elsewhere. Some choose the middle ground of donating publicly, knowing that their sample might benefit another family, if not themselves. For more information, ask your doctor or nurse, and be sure to check out our article on the technical aspects of cord-blood banking. Technical Aspects of Cord-Blood Banking If you are interested in storing your baby's umbilical- cord blood because of its possible use in emerging medical treatments, you must make arrangements with a blood bank before your child is born. The collection procedure is quite simple: After delivery of the baby, the umbilical cord is clamped and cut in the usual way. The blood that remains in the umbilical-cord vessels is then collected in sterile containers. The blood may be removed from the cord with a large needle or allowed to flow freely, depending on the company's collection system. The containers may look like large test tubes or like the plastic bags used in a blood bank. It does not cause the mother or the baby any pain to collect the blood, and no blood is taken that the baby needs at the moment. The nurse, supervisor fabrication and assembly, or physician will then label the samples, check them over with you, and package them for a special pickup arranged with a commercial carrier. When the blood arrives at the blood- bank facility, it is processed and the parents are notified. It is then kept in an advanced storage system for years. How do I know that my sample is safe? Power outages and bankruptcies potentially could threaten any organization, but so far none have been reported. It is to be hoped that the scientists in these [place] would arrange for safe transfer to another facility if the need arose. YOU MUST MAKE ARRANGEMENTS AHEAD OF TIME! Public cord-blood [place]--DONATION: [employer] [phone] [facility]'s Placental Blood Program, [facility] Umbilical Cord Blood Bank, Private cord-blood [place]--SAVING FOR YOUR OWN USE: [employer], (I think this is the least expensive) [employer] [phone] [employer], ([phone]) [employer] [place] Cord Blood [facility], [phone]-CORD Cells, [phone] [place] [facility], Cord Blood Registry, [phone]) C[employer]BLOOD [employer], An Internet search may provide you with additional listings. Disposition: Return in 12 days (on 11/18/2017) for New OB with Oscar Drew. Follow-up and Disposition History Recorded Encounter Status:Closed by YAQUELIN NAIK CNM on 11/06/17 XR FOOT 3V AP/LAT/OBL Observed: 07/22/2017 Status: F Source: [facility] 3:18 PM [facility] REPOSITORY * * *Final Report* * * DATE OF EXAM: Jul 22 2017 3:18PM WOX [id number] - XR FOOT 3V AP/LAT/OBL LT / PROCEDURE REASON: Pain in left foot * * * * Physician Interpretation * * * * HISTORY: 32-YEAR-OLD FEMALE WITH Pain in left foot . mid left foot pain for awhile now/no injuries/hurts to walk on TECHNIQUE: XR FOOT 3V AP/LAT/OBL LT Laterality: LEFT Number of different views (projections): 3 COMPARISON: None RESULT: Bones and joints of the foot are normal in appearance. No fracture. No joint space narrowing. IMPRESSION: NORMAL RADIOGRAPH OF THE LEFT FOOT Dry House Tender: P[facility] Transcribe Date/Time: Jul 22 2017 4:50P Dictated by : MT FLORES MD This examination was interpreted and the report reviewed and electronically signed by: MT FLORES MD on Jul 22 2017 4:52PM EST [id number] Observed: 07/22/2017 Status: COMPLETED Source: [place] 3:08 PM [facility] REPOSITORY HNO ID: [id number] Author: Elma Dee (Tech) Service: (none) Author Type: Winemaker Type: Progress Notes Filed: 07/22/2017 3:18 PM Note Text: Radiology Service Progress Note PATIENT NAME: Odin Bartlett DATE OF SERVICE: July 22, 2017 TIME: 3:08 PM PATIENT IDENTITY VERIFICATION COMPLETED USING TWO (2) METHODS: Patient confirmed name verbally and Date of . PATIENT GENDER DATA: Female. status: : No status: NO. PATIENT RELEVANT IMPLANT DATA REVIEWED: Not Applicable RADIOLOGY DEPARTMENT: General X-ray: Exam(s) Completed: Lower Extremity X-Ray(s): Foot, Left and Wt. Bearing: PERIPHERAL IV DATA: Not applicable SIGNED BY: Elma Walker July 22, 2017 3:08 PM PROGRESS Observed: 07/22/2017 Status: COMPLETED Source: SETH 2:41 PM [facility] REPOSITORY HNO ID: [id number] Author: Luz Gloria Service: (none) Author Type: Nurse Practitioner Type: Progress Notes Filed: 07/22/2017 3:03 PM Note Text: 07/22/2017 Patient presents with: Musculoskeletal Problem: foot pain left no injury , has had for month and a half SUBJECTIVE: This is a 32 year old that is here today for top of left foot pain for a month and a half. Described as an intense ache. She states that she cannot recall an injury or any trauma to the site. She works 10-12 hour days and is on feet a lot. She states that she has noticed some swelling, denies heat or redness. Takes ibuprofen if really bad and it helps. Has been needing to take it more over the last week. She has tried compression once or twice and it may have helped some, but not a lot. Better with elevation and rest. She has tried new shoes and insoles without improvement. Denies CP or SOB. PAST MEDICAL HISTORY Diagnosis Date - Asthma during childhood - Disorder of pelvic girdle During Childbirth - Salivary gland stone follwed by ENT Dr. Wood ALLERGIES Seasonal Allergies MEDICATIONS No current outpatient prescriptions on file. No current facility-administered medications for this visit. Medications and allergies reviewed by this provider. 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 Vital signs reviewed by this provider. PHYSICAL EXAMINATION: General appearance: Well appearing, alert, in no acute distress, well-hydrated, well nourished. Skin: Left foot: Skin color, texture, turgor normal, no suspicious rashes or lesions, no ecchymosis or erythema. Lungs: Lungs clear to auscultation. No wheezing, rhonchi, rales Heart: RRR without murmur, gallop, or rubs. No ectopy Extremities: No deformities, edema, skin discoloration, clubbing or cyanosis. Good capillary refill. , Pulses: 2+. Tenderness to the anterior mid foot with palpation. ASSESSMENT/PLAN: 1. Foot pain, left - ICD9: 729.5, ICD10: M79.672 (primary diagnosis) - Encouraged RICE - NAPROXEN 500 MG TABLET- BID for 2 weeks, then PRN - XR FOOT GENERAL 3V AP/LAT/OBL LT- will call with results and any change in the plan of care Luz Gloria APRN.CNP CNOV Observed: 07/22/2017 Status: COMPLETED Source: SETH 2:20 PM [facility] REPOSITORY Office Visit (FAMPWS) ODIN BARTLETT ([id number]) 1985 F Date Time Provider Department 07/22/17 2:20 PM LUZ GLORIA (BACILIO) FAMPWS During your visit today, we recorded the following information about you: Pulse Respiration Blood pressure Weight 80/minute 16/minute 124/80 101.6 kg Luz Gloria APRN.CNP 07/22/2017 3:03 PM Signed 07/22/2017 Patient presents with: Musculoskeletal Problem: foot pain left no injury , has had for month and a half SUBJECTIVE: This is a 32 year old that is here today for top of left foot pain for a month and a half. Described as an intense ache. She states that she cannot recall an injury or any trauma to the site. She works 10-12 hour days and is on feet a lot. She states that she has noticed some swelling, denies heat or redness. Takes ibuprofen if really bad and it helps. Has been needing to take it more over the last week. She has tried compression once or twice and it may have helped some, but not a lot. Better with elevation and rest. She has tried new shoes and insoles without improvement. Denies CP or SOB. PAST MEDICAL HISTORY Diagnosis Date - Asthma during childhood - Disorder of pelvic girdle During Childbirth - Salivary gland stone follwed by ENT Dr. Wood ALLERGIES Seasonal Allergies MEDICATIONS No current outpatient prescriptions on file. No current facility-administered medications for this visit. Medications and allergies reviewed by this provider. 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 Vital signs reviewed by this provider. PHYSICAL EXAMINATION: General appearance: Well appearing, alert, in no acute distress, well-hydrated, well nourished. Skin: Left foot: Skin color, texture, turgor normal, no suspicious rashes or lesions, no ecchymosis or erythema. Lungs: Lungs clear to auscultation. No wheezing, rhonchi, rales Heart: RRR without murmur, gallop, or rubs. No ectopy Extremities: No deformities, edema, skin discoloration, clubbing or cyanosis. Good capillary refill. , Pulses: 2+. Tenderness to the anterior mid foot with palpation. ASSESSMENT/PLAN: 1. Foot pain, left - ICD9: 729.5, ICD10: M79.672 (primary diagnosis) - Encouraged RICE - NAPROXEN 500 MG TABLET- BID for 2 weeks, then PRN - XR FOOT GENERAL 3V AP/LAT/OBL LT- will call with results and any change in the plan of care Luz Gloria APRN.INFO SPECIALIST Referring Provider: SELF [200] Allergies As of Date: 07/22/2017 Noted Allergy Reaction SEASONAL ALLERGIES 04/09/2016 5 - Intolerance Comments: Sinus issues and itchy eyes Date Reviewed: 07/22/2017 Reviewed by: Micaela Busby) PADILLA Stephens - Fully Assessed Reason for Visit: Musculoskeletal Problem [69] Cmt: foot pain left no injury , has had for month and a half Primary Visit Diagnosis:Foot pain, left [M79.672] Other Visit Diagnosis:Obesity, Class II, BMI 35-39.9 [E66.9] Order(s):naproxen (NAPROSYN) 500 mg tabletTake 1 tablet by mouth twice daily as needed (for pain/inflammation). Take with food.Disp: 60 tabletRfl: 1 XR FOOT GENERAL 3V AP/LAT/OBL LT [[id number]] Order #: [id number] FUTURE Prescriptions as of 07/22/2017 Sig: NAPROXEN 500 MG TABLET Take 1 tablet by mouth twice * Problem List As Of Date 07/22/2017 Noted Resolved Obesity, Class II, BMI 35-39.9 E66.9 [E66.9] INVALID FOR* Prescriptions ordered this encounter Disp Refills Start End NAPROXEN 500 MG TABLET 60 t* 1 07/22/2017 Route: ORAL Sig: Take 1 tablet by mouth twice daily as needed (for pain/inflammation). Take with food. Disposition: Return if symptoms worsen or fail to improve. Follow-up and Disposition History Recorded Encounter Status:Closed by LUZ GLORIA on 07/22/17 ALLERGIES ALLERGIES DATE TYPE / CODE NAME / CODE REACTION SEVERITY SOURCE 05/07/2018 Drug tramadol/[id number] Other Unknown [place] Allergy/416 180(RXNORM) [facility] [id number]([facility] ED CT) Repository 11/17/2017 Drug No Known Unknown [place] Allergy/416 Allergies/H21545 [facility] [id number]([facility] 11/06/2017 DRUG TRAMADOL HCL OTHER: SEE C [facility] INGREDI/419 [facility] 872623(SNOM Repository ED CT) 04/09/2016 Environ/420 SEASONAL INTOLERANCE [facility] [id number]([facility] ALLERGIES [facility] [place] [facility]) Repository ENCOUNTERS ENCOUNTERS ADMIT/DISCHARGE ACCOUNT ADMITTING ENCOUNTER LOCATION SOURCE NUMBER CLASS 05/14/2018/05/15/19 [id number] Ambulatory [address] Repository 05/14/2018/05/15/19 [id number] Ambulatory [address] Repository 05/07/2018/05/07/[id number] ing:WPOUTRoom Repository : [id number] 04/27/2018/04/28/19 [id number] Ambulatory [address] Repository 04/23/2018 [id number] [facility] ing:LABSPEC Repository 04/22/2018/04/22/[id number] ing:WPOUTRoom Repository : [id number] 04/22/2018/04/23/19 [id number] Ambulatory [facility] [address] [place] Repository 04/16/2018/04/20/20 [id number] Ambulatory [facility] [place] Repository 04/11/2018/04/11/20 [id number] Amb[facility] [place] Repository 03/31/2018/03/31/20 [id number] Ambulatory [facility] [place] Repository 03/31/2018/04/01/20 [id number] Ambulatory [facility] [place] Repository 03/19/2018/03/19/20 [id number] Ambulatory [facility] [place] Repository 03/19/2018/03/20/20 [id number] Ambulatory [facility] [place] Repository 03/17/2018/03/18/20 [id number] Ambulatory [facility] [place] Repository 02/24/2018/02/26/20 [id number] Ambulatory [facility] [place] Repository 02/13/2018/02/17/20 [id number] Amb[facility] [place] Repository 02/06/2018/02/10/20 [id number] Ambulatory [facility] [place] Repository 01/13/2018/01/14/20 [id number] Ambulatory [facility] [place] Repository 01/12/2018/01/14/20 [id number] Ambulatory [facility] [place] Repository 12/18/2017/12/19/19 [id number] Ambulatory [facility] [place] Repository 12/18/2017/12/19/19 [id number] Ambulatory [facility] [place] Repository 12/16/2017/12/18/19 [id number] Ambulatory [facility] [place] Repository 12/08/2017/12/09/19 [id number] Ambulatory [facility] [place] Repository 11/25/2017 [id number] Ambulatory BMSBuilding:Shayla Gonzalez PR.[facility] Repository 11/18/2017/11/19/19 [id number] Ambulatory [facility] [place] Repository 11/17/2017/11/18/19 [id number] Emergency Carlos Gonzalez [address] [place] [address] Hospital ing:ED Repository 11/17/2017/11/19/19 [id number] Ambulatory [facility] [place] Repository 11/11/2017/11/13/19 [id number] Ambulatory [address] Repository 11/06/2017/11/08/19 [id number] Ambulatory [address] Repository 07/22/2017/07/23/19 [id number] Ambulatory [address] Repository 07/22/2017/07/25/19 [id number] Ambulatory [address] Repository PAYERS PAYERS ENCOUNTER GUARANTOR PAYER SUBSCRIBER SOURCE 05/07/2018 ODIN Sandra Primary ODIN Gonzalez [id number] LEVINE Insurance:CIGNAPolicy EBERTDOB: [place], [place] Number: [id number] [address]Aqq: [phone] [id number] Repository [phone] () Date:3489-33-96[address], [place] [address]FP: 05/07/2018 Secondary NOT GIVENUNK [place] Insurance:SELF PAY [facility]: Effective Repository Date:2018-05-07 04/23/2018 ODIN Gonzalez [id number] LEVINE Insurance:CIGNAPolicy EBERTDOB: [place], [place] Number: [id number] [facility] 26[address]Vwj: (843 [id number] Repository [phone] () Date:2452-29-18[address], [place] [address]VC: 04/23/2018 Secondary NOT GIVENUNK [place] Insurance:SELF PAY [facility] Number: Effective Repository Date:2018-04-23 04/22/2018 ODIN [id number] Primary ODIN EBERTDOB: [place] LEVINE Insurance:CIGNAPolicy [id number] Number: [facility] [id number]: (843 [id number] Repository [phone] () Date:1024-24-17[address], [place] [address]NZ: 04/22/2018 Secondary NOT GIVENUNK [place] Insurance:SELF PAY [facility] Number: Effective Repository Date:2018-04-22 11/25/2017 ODIN [id number] Primary [place]IV[place]UNK [place] Insurance:SELF PAY [facility] [address]Teh: (843) Number: Effective Repository [phone] () Date:2017-11-05 11/17/2017 ODIN [id number] Primary ODIN EBERTDOB: [place] LEVINE Insurance:[id number] Number: [facility] [address]Fbp: [id number] [id number] Repository [phone] () Date:2845-29-25[address], [place] [address]DV: 11/17/2017 Secondary NOT GIVENUNK [place] Insurance:SELF PAY [facility] Number: Effective Repository Date:2017-11-17
== END 2018-05-07 14:45 | disposition home or self-care (01) ==
LOC: WPOUT 12:48 → WP 12:49
PROVIDERS: Family Provider Family Medicine; PCP Family Medicine; Referring Provider Obstetrics & Gynecology; Visit Provider Obstetrics & Gynecology
DX: R51 Headache (principal); H53.8 Other visual disturbances; Z3A.33 33 weeks gestation of pregnancy
CPT/HCPCS: 36415; 59025; 59050; 82565; 82570; 84156; 84450; 84460; 84550; 85027; 85610; 85730; 99218; G0378

== ENCOUNTER 2018-06-01 21:42 | Inpatient (IN) | payer OTHER, SELFPAY ==
[2018-06-01] MEDS: Lactated Ringers 1,000 ML 50 ML IV (22:10)
[2018-06-01 22:22] VITALS: BMI 39.1
[2018-06-01 22:36] LABS: Hematocrit 36.5 % (37-47); Hemoglobin 11.9 g/dl (12.0-15.0); Mean Corp Hgb Conc 32.6 g/gl (32-36); Mean Corpuscular Hgb 29.5 pg (27.0-32.0); Mean Corpuscular Volume 90.3 fL (81-99); Mean Platelet Vol. 10.1 fl (6.2-12.0); Platelet Count 357 K/mm3 (150-450); RBC Distribution Width CV 13.8 % (11.6-14.6); RBC Distribution Width SD 45.2 fl (35.1-43.9); Red Blood Count 4.04 M/mm3 (4.2-5.4); White Blood Count 16.3 K/mm3 (4.4-11.0)
[2018-06-01 22:37] LABS: Scan Indicated on CBC? Y/N NO
--- NOTE | 2018-06-01 22:41 | HP.PCM_ITS ---
- Problem List (1) Gestational hypertension Status: Acute (2) Active labor Status: Acute (3) History of depression Status: Acute (4) Obesity affecting Status: Acute History Date of Admission: 06/01/18 Final REYNA: 06/24/18 Final REYNA Source: US <20 weeks Gestational age: 36 Weeks and 5 Days History of this : This is a 32 year-old, G [2], P [1001], at 36w5d weeks gestational age. Presents to L&D with complaint of contractions that started this afternoon. Seen in office and cervical exam 4cm. Now contractions more regular, every 7-10 minutes, increased pain and intensity. Denies any headaches, visual changes, or RUQ pain. Allergies tramadol [From [facility]] Adverse Reaction (Verified 05/07/18 13:05) Other dizziness, lightheaded Home Medications: Home Medications Acetaminophen [Tylenol Extra Strength] 1,000 mg PO Q6H PRN PRN 04/22/18 Folic Acid 0.4 mg PO DAILY 04/22/18 Multivitamin [Flintstones] 1 each PO DAILY 04/22/18 Labetalol [Trandate (Beta Kwame)] 100 mg PO BID 05/07/18 Smoking Status: Never smoker Alcohol: None Number of Fetus(es): 1 Heart Tracin, moderate variability, accels, no decels, Category 1 TOCO Analysis: Every 6-10 minutes, lasting 60-90 seconds, moderate to palpation History Past Pregnancies: Past Pregnancies Delivery Date Name GA/Weeks Outcome Route Weight Gender Labor Length Anesthesia Delivery Location Provider FOB Labs: GBS negative RPR negative Rubella negative HBsAG HIV negative A positive, antibody screen negative Urine tox screen negative GC/CT negative Expected Delivery Method: Spontaneous Vaginal Review of Systems Constitutional: Denies: Chills, Fever, Weight Change Eyes: Denies: Blurred vision, Vision Change HEENT: Denies: Head Aches, Sinus Congestion, Sinus Drainage Cardiovascular: Denies: Chest Pain, Palpitations Respiratory: Denies: Cough, Shortness of breath at rest, Sputum production Gastrointestinal: Denies: Abdominal Pain, Nausea, Vomiting Genitourinary: Denies: Dysuria Musculoskeletal: Denies: Joint Pain, Joint Tenderness Neurological: Denies: Blurred vision, Focal weakness, Numbness, Tingling Psychiatric: Denies: Anxiety, Depression, Homicidal Ideations, Suicidal Ideations Physical Exam General: Alert, Oriented x3, No apparent distress HEENT: Atraumatic, Normocephalic Cardiovascular: Regular rate, Regular Rhythm, No murmurs Lungs: Clear to auscultation, Normal air movement, No rhonchi, No wheeze Abdomen: Non Tender, Gravid Extremities:: Other - +1 BLE edema, non pitting Neurological: Deep Tendon Reflexes 2+/4 and Symmetrical. 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 A:Active Labor Category 1 FHT P: 1) Admit to L&D. . Celestone 12mg IM given once in office today. 2) IV with maintenance fluids. Admission labs and pre-e labs 3) Continuous heart monitoring 4) Continue Labetolol 100mg PO BID. BP stable at this time. No signs of Pre-e 5) notified of admission.
[2018-06-01 22:43] LABS: AST(SGOT) 13 U/L (15-37); Alanine Aminotransfer ALT/SGPT 14 U/L (13-56); Creatinine, Serum 0.91 mg/dL (0.55-1.02); EST Glomerular Filtration Rate 76 mL/min (>60); Est Glom Filt Rate - Afr Amer 92 mL/min (>60); Estimated Creatinine Clearance 83.85 ml/min; Uric Acid 4.3 mg/dL (2.6-6.0)
[2018-06-01 22:47] LABS: Prothrombin Time (Protime)PT. 12.9 SECONDS (11.7-14.9)
[2018-06-02] MEDS: Ondansetron 4 MG/2 ML Vial IV (01:00)
[2018-06-02] MEDS: 0.9% Saline Lock 10 ML Syringe IV ×2 (01:01→08:48)
[2018-06-02] MEDS: fentaNYL-bupivacaine (epidural) 100 ML BAG EPIDURAL (01:29)
[2018-06-02 01:58] LABS: Protein, Urine (Random) 6.7 mg/dL (<11.9); Protein:Creat Ratio 41 mg/g CRE (0-200)
[2018-06-02] MEDS: Mag Hydrox/Al Hydrox/Simeth 30 ML UDC PO (01:59)
--- NOTE | 2018-06-02 05:32 | PCM.PN.OB ---
Patient Problems: Active and Suspected Problems Gestational hypertension (Acute) Active labor (Acute) History of depression (Acute) Obesity affecting (Acute) Subjective: Feeling increased pressure in RLQ and pelvis but no need to push. at bedside. Objective: FHR 130, moderate variability, accels, Category 1 TOCO: every 2-3 minutes, Strong Cervix: complete/0 station - Physical Exam Weight: 242 lb 8.136 oz Body Mass Index (BMI) 39.1 Intake and Output for Last 24 Hours 05/31/18 06/01/18 06/02/18 23:59 23:59 23:59 Intake Total 1000 / 1000 Output Total 225 / 225 Balance 775 / 775 Laboratory Tests Past 24 Hrs 06/01/18 06/01/18 06/01/18 22:12 22:12 22:12 WBC 16.3 H RBC 4.04 L Hgb 11.9 L Hct 36.5 L MCV 90.3 MCH 29.5 MCHC 32.6 RDW 13.8 RDW Differential 45.2 H Plt Count 357 MPV 10.1 PT 12.9 INR 1.0 APTT 28.0 Creatinine Estim Creat Clear Calc Est GFR (MDRD) Af Amer Est GFR (MDRD) Non-Af Uric Acid AST ALT U Random Total Protein Urine Creatinine Protein/Creatinin Ratio Blood Type A POSITIVE Antibody Screen NEGATIVE 06/01/18 06/02/18 22:12 01:25 WBC RBC Hgb Hct MCV MCH MCHC RDW RDW Differential Plt Count MPV PT INR APTT Creatinine 0.91 Estim Creat Clear Calc 83.85 Est GFR (MDRD) Af Amer 92 Est GFR (MDRD) Non-Af 76 Uric Acid 4.3 AST 13 L ALT 14 U Random Total Protein 6.7 Urine Creatinine 162.00 Protein/Creatinin Ratio 41 Blood Type Antibody Screen Medical Necessity - Tobacco Use Smoking Status: Never smoker Assessment/Plan All Active Problems Gestational hypertension (Acute) Active labor (Acute) History of depression (Acute) Obesity affecting (Acute) A:Active Labor, progressing, second stage Category 1 FHT P: 1) Attempted pushing efforts, patient unable to cope with LLQ pain with pushing. Pushing efforts without head descent. Discussed with patient option for evaluation by anesthesia and laboring down. Reviewed risks vs benefits and patient would like this option. Unable to cope with pain to produce pushing efforts. Will labor down at this time after patient gets some relief. 2) Positional change on left side. 3) Continue with expectant management.
[2018-06-02] MEDS: Oxytocin 30 units/NS 500 ml 30 UNITS/500 ML IV.SOLN 334 UNITS IV (07:25)
--- NOTE | 2018-06-02 07:47 | PCM.OB.VAG ---
- Problem List (1) Gestational hypertension Status: Acute (2) Active labor Status: Acute (3) History of depression Status: Acute (4) Obesity affecting Status: Acute (5) (normal spontaneous vaginal delivery) Status: Acute Vaginal Delivery Maternal Presentation: Active Labor Amniotic Membrane Rupture Type: Artificial Amniotic Fluid Description: Clear Final REYNA: 06/24/18 Gestational age: 36 Weeks and 6 Days Date of Procedure: 06/02/18 Pre-Operative Diagnosis: active labor Post-Operative Diagnosis: Surgery/ Procedure Performed: Spontaneous Vaginal Delivery Type of Anesthesia: Epidural Description of Procedure: Progressed to complete, pushing efforts started and patient unable to continue due to pain. Anesthesia called for evaluation and epidural redosed. Patient labored down for approximately 30 minutes and then began pushing effort again. of viable male infant over intact perineum. APGARS 9,9. head delivered with anterior nuchal hand, uncomplicated. Infant placed on maternal abdomen, spontaneous cry. Mouth and nares wiped for secretions. Pitocin started for active 3rd stage management. Placenta delivered with maternal effort, intact, 3 vessel cord. Perineum inspected and revealed intact, no repair required. Fundus firm, hemostasis achieved, 300ml EBL. Sponge and instrument count correct. notified. Mom and baby stable. Family bonding well. Planning to breastfeed. Presentation: Vertex Placental Delivery Description: Spontaneous Placenta Disposition: [facility] Cord Vessel Description: 3 Vessels Cord Entanglement: None Estimated Blood Loss: 300 ml Infant A gender: Male (1 minute): 9 (5 minute): 9 Episiotomy Description: None Laceration: None Medications given after delivery: IV Pitocin
--- NOTE | 2018-06-02 07:54 | OP.PCM_ITS ---
- Problem List (1) Gestational hypertension Status: Acute (2) Active labor Status: Acute (3) History of depression Status: Acute (4) Obesity affecting Status: Acute (5) (normal spontaneous vaginal delivery) Status: Acute Vaginal Delivery Maternal Presentation: Active Labor Amniotic Membrane Rupture Type: Artificial Amniotic Fluid Description: Clear Final REYNA: 06/24/18 Gestational age: 36 Weeks and 6 Days Date of Procedure: 06/02/18 Pre-Operative Diagnosis: active labor Post-Operative Diagnosis: Surgery/ Procedure Performed: Spontaneous Vaginal Delivery Type of Anesthesia: Epidural Description of Procedure: Progressed to complete, pushing efforts started and patient unable to continue due to pain. Anesthesia called for evaluation and epidural redosed. Patient labored down for approximately 30 minutes and then began pushing effort again. of viable male infant over intact perineum. APGARS 9,9. head delivered with anterior nuchal hand, uncomplicated. Infant placed on maternal abdomen, spontaneous cry. Mouth and nares wiped for secretions. Pitocin started for active 3rd stage management. Placenta delivered with maternal effort, intact, 3 vessel cord. Perineum inspected and revealed intact, no repair require d. Fundus firm, hemostasis achieved, 300ml EBL. Sponge and instrument count correct. notified. Mom and baby stable. Family bonding well. Planning to breastfeed. Presentation: Vertex Placental Delivery Description: Spontaneous Placenta Disposition: [facility] Cord Vessel Description: 3 Vessels Cord Entanglement: None Estimated Blood Loss: 300 ml A gender: Male (1 minute): 9 (5 minute): 9 Episiotomy Description: None Laceration: None Medications given after delivery: IV Pitocin
[2018-06-02] MEDS: Oxytocin 30 units/NS 500 ml 30 UNITS/500 ML IV.SOLN 167 UNITS IV (07:55)
[2018-06-02] MEDS: Naproxen 250 MG Tablet PO ×2 (08:47→21:10)
[2018-06-02 11:34] VITALS: BP 136/76; PULSE 86; RESP 16; TEMP 36.7
[2018-06-02] MEDS: Labetalol 100 MG Tablet PO ×2 (12:09→21:10)
[2018-06-02 16:25] VITALS: BP 102/54; PULSE 62; RESP 16; TEMP 36.9
[2018-06-02 21:15] VITALS: BP 118/64; PULSE 76; RESP 16; TEMP 37; O2SAT 95
[2018-06-02 23:40] VITALS: BP 98/44; PULSE 77; RESP 16; TEMP 37.1; O2SAT 100
[2018-06-03 03:30] VITALS: BP 105/57; PULSE 71; RESP 16; TEMP 36.9; O2SAT 95
[2018-06-03 08:15] VITALS: BP 111/62; PULSE 68; RESP 18; TEMP 36.4
--- NOTE | 2018-06-03 08:24 | DCINST_ITS ---
Discharge Diet: No Restrictions Discharge Activity: Return to Normal Activity, May not drive while taking narcotic pain medications., May Shower May resume sexual activity in: 4-6 weeks Additional Activity Instructions:: Nothing in the vagina for 4-6 weeks. You may return to work/school in 6 weeks. Call your doctor if your incision/area has: Continuous Slow Oozing, Sudden Increased Bleeding, Increased Pain/ Swelling, Increased Redness, Foul Smelling Discharge Call your doctor if you observe: Fever of 101 or Higher, Inability to urinate, Inability to have a bowel movement, Using more than one pad per hour Additional Instructions: If you experience any of the following, contact your healthcare provider. * Bleeding that soaks a pad every hour for 2 hours * Fever 100.4 or higher * Unrelieved incision or abdominal pain * Swelling, redness, discharge or bleeding from your incision or episiotomy site * Your incision begins to separate * Problems urinating (including inability to urinate or burning while urinating). * Visual changes * Severe headache * Flu-like symptoms * Pain or redness in one of both of your breasts * Pain, warmth, tenderness or swelling in your legs, especially the calf area * Frequent nausea and vomiting * Symptoms of depression or anxiety If you experience any of the following, call 911 or go to the nearest Emergency Room. * Chest pain * Problems breathing * Seizure activity * Partial or complete paralysis of a body part, slurred speech, weakness or drooping of the face, or a sudden inability to walk or hold your balance Allergies/Adverse Reactions: Allergies tramadol [From [facility]] Adverse Reaction (Verified 05/07/18 13:05) Other dizziness, lightheaded Medications to take at Discharge Acetaminophen [Tylenol Extra Strength] 1,000 mg PO Q6H PRN PRN 04/22/18 Folic Acid 0.4 mg PO DAILY 04/22/18 Multivitamin [Flintstones] 1 each PO DAILY 04/22/18 Labetalol [Trandate (Beta Kwame)] 100 mg PO BID 05/07/18 When: Call to make an appointment with your doctor in 6 weeks. Please schedule blood pressure check appointment in 1 week, we will evaluate at that time whether you need to remain on the Labetalol 100mg PO BID medication Primary Care Physician: Jayson Child MD [Primary Care Provider] - Test Results: Test results from this visit will be discussed in further detail at your follow- up appointment, if applicable. Proposed Discharge Date: 06/04/18
[2018-06-03] MEDS: Naproxen 250 MG Tablet PO ×2 (08:25→16:50)
--- NOTE | 2018-06-03 08:25 | PCM.PN.OB ---
Patient Problems: Active and Suspected Problems Gestational hypertension (Acute) Active labor (Acute) History of depression (Acute) Obesity affecting (Acute) (normal spontaneous vaginal delivery) (Acute) Subjective: Patient sitting up in bed now doing [id number] with infant. Denies FLOWERS, dizziness, scotoma, RUQ pain. Reports overall no issues, though she has several questions about and circumcision care. Reports desire to stay until tomorrow PPD #2 for continued education and support prior to discharge. Objective: Nipples without cracks or blisters, no ecchymoses or blisters noted Abdomen NT x 4 quadrants, FF midline at 1FB below umbilicus +2/4 reflexes in LE, no edema noted, negative calf tenderness to palpation Scant rubra lochia, intact perineum - Physical Exam General: Alert, Oriented x3, Cooperative HEENT: Atraumatic, Normocephalic Neck: Supple Lungs: Normal air movement Cardiovascular: Regular rate, Regular Rhythm Abdomen: Soft, Non Tender Extremities: No edema, Capillary Refill Less than 3 Seconds Skin: No rashes, No breakdown Musculoskeletal: No Tenderness to Palpation of Joints or Extremities Neurological: Cranial nerves II-XII grossly intact Psych/Mental Status: Normal Affect, Appropriate Vital Signs Temp Pulse Resp BP Pulse Ox 98.4 F 71 16 105/57 L 95 06/03/18 03:30 06/03/18 03:30 06/03/18 03:30 06/03/18 03:30 06/03/18 03:30 Oxygen Delivery Method Room Air Weight: 242 lb 8.136 oz Body Mass Index (BMI) 39.1 Intake and Output for Last 24 Hours 06/01/18 06/02/18 06/03/18 23:59 23:59 23:59 Intake Total 1000 / 1000 Output Total 525 / 525 Balance 475 / 475 Capacity - Capacity Assessment Tool Can the patient make a choice & communicate that choice?: Yes Can the patient understand benefits, risks and alternatives?: Yes Can the patient make a logical, rational choice?: Yes Is the choice the patient makes consistent w/ their values?: Yes Is there an impending, emergent risk to the patient?: No Does the patient have an Advance Directive?: No Is there a Surrogate Available?: Yes Medical Necessity - Tobacco Use Smoking Status: Never smoker Assessment/Plan All Active Problems Gestational hypertension (Acute) Active labor (Acute) History of depression (Acute) Obesity affecting (Acute) (normal spontaneous vaginal delivery) (Acute) 32 y/o s/p @ 36.5weeks, PPD #1, Normal PP Course 1) Continue PP orders 2) consultation 3) Anticipate discharge to home tomorrow Yaquelin ISSA
[2018-06-03] MEDS: Senna/Docusate Sodium 1 Tablet PO (08:26)
[2018-06-03 10:00] VITALS: BP 120/68; PULSE 79; RESP 18
[2018-06-03] MEDS: Labetalol 100 MG Tablet PO (10:39)
[2018-06-03 14:00] VITALS: BP 120/64; PULSE 70; RESP 18; TEMP 36.7
[2018-06-03 20:50] VITALS: BP 126/64; PULSE 89; RESP 16; TEMP 36.6; O2SAT 99
[2018-06-04 03:15] VITALS: BP 122/63; PULSE 72; RESP 16; TEMP 36.4; O2SAT 96
[2018-06-04] MEDS: Naproxen 250 MG Tablet PO (03:16)
[2018-06-04 06:00] VITALS: BP 147/84; PULSE 95; RESP 16; TEMP 37.1; O2SAT 98
--- NOTE | 2018-06-04 08:29 | PCM.PN.OB ---
Patient Problems: Active and Suspected Problems Gestational hypertension (Acute) Active labor (Acute) History of depression (Acute) Obesity affecting (Acute) (normal spontaneous vaginal delivery) (Acute) Subjective: Denies complaints - Physical Exam General: Alert, Oriented x3 Abdomen: Soft, Non Tender, Non-Distended - ff mid & below umb Extremities: No Calf Tenderness Vital Signs Temp Pulse Resp BP Pulse Ox 97.6 F L 72 16 122/63 H 96 06/04/18 03:15 06/04/18 03:15 06/04/18 03:15 06/04/18 03:15 06/04/18 03:15 Oxygen Delivery Method Room Air Weight: 242 lb 8.136 oz Body Mass Index (BMI) 39.1 Intake and Output for Last 24 Hours 06/02/18 06/03/18 06/04/18 23:59 23:59 23:59 Intake Total 1000 / 1000 Output Total 525 / 525 Balance 475 / 475 Medical Necessity - Tobacco Use Smoking Status: Never smoker Assessment/Plan All Active Problems Gestational hypertension (Acute) Active labor (Acute) History of depression (Acute) Obesity affecting (Acute) (normal spontaneous vaginal delivery) (Acute) PPD#2 Gestational hypertension - continue labetalol. Patient has home BP monitor. F/u within 1 week for office BP check. D/c home.
[2018-06-04 08:32] VITALS: BP 147/84; PULSE 95; RESP 16; TEMP 37; O2SAT 98
[2018-06-04] MEDS: Labetalol 100 MG Tablet PO (09:48)
== END 2018-06-04 10:00 | disposition home or self-care (01) | DRG 807 ==
PROVIDERS: Advanced Practice Midwife; Admitting Provider Obstetrics & Gynecology; Family Provider Family Medicine; PCP Family Medicine; Referring Provider Obstetrics & Gynecology; Visit Provider Obstetrics & Gynecology
DX: O60.14X0 Preterm labor third trimester with preterm delivery third trimester, not applicable or unspecified (principal); Z37.0 Single live birth; O13.4 Gestational [pregnancy-induced] hypertension without significant proteinuria, complicating childbirth; O69.81X0 Labor and delivery complicated by cord around neck, without compression, not applicable or unspecified; O99.214 Obesity complicating childbirth; Z3A.36 36 weeks gestation of pregnancy
CPT/HCPCS: 59025; 59050; 82565; 82570; 84156; 84450; 84460; 84550; 85027; 85610; 85730; 86850; 86900; 99218; J7120; A4216; G0378; J2405

== ENCOUNTER 2024-06-25 16:43 | Observation (INO) | payer BC, OTHER, SELFPAY ==
--- NOTE | 2024-06-09 13:52 | PCM.HP.BLA ---
History and Physical Date of Admission: 06/25/24 HPI: The patient is a 38 year old female presenting for pre-operative visit. She is scheduled for LAVH, bilateral salpingectomy, possible cystoscopy for heavy menses, endometrial hyperplasia on 06/25/24. Procedure discussed along with risks, benefits and complications. Other alternatives discussed for management. Consent form signed? Yes. PAST MEDICAL HISTORY PAST MEDICAL HISTORY Diagnosis Date ? Asthma during childhood ? Benign endometrial hyperplasia 2022 ? Complication of anesthesia felt high with Epidural ? Disorder of pelvic girdle During Childbirth ? Gestational hypertension without significant proteinuria in third trimester 05/14/2018 ? Salivary gland stone follwed by ENT Dr. Wood PAST SURGICAL HISTORY PAST SURGICAL HISTORY Procedure Laterality Date ? INSERT INTRAUTERINE DEVICE 02/21/2023 Mirena ? RPR UMBILICAL HRNA 5 YRS/> REDUCIBLE 10/04/2019 Hernia repair, umbilical >5yr ? TONSILLECTOMY HX age 5 CURRENT MEDICATIONS Current Outpatient Medications Medication Sig Dispense Refill ? norethindrone (AYGESTIN) 5 mg tablet Take 1 tablet by mouth once daily. ONE PO Q 1 HR UNTIL BLEEDING SLOWS, UP TO 5 TABS TODAY. THEN ONE PO QID X 3 DAYS THEN TID X 3 DAYS THEN BID X 3 DAYS THEN ONE QDAY. 30 tablet 1 ? Phentermine HCl 37.5 mg tablet Take 1 tablet by mouth daily before breakfast for 90 days. 90 tablet 0 ? topiramate (TOPAMAX) 50 mg tablet Take 1 tablet by mouth daily at bedtime. 90 tablet 1 ? multivit-minerals/folic acid (MULTIVITAMIN GUMMIES ORAL) Take by mouth. ? ondansetron (ZOFRAN) 4 mg tablet Take 1 tablet by mouth every 8 hours as needed for nausea/vomiting. 30 tablet 0 ? levonorgestrel (MIRENA) 21 mcg/24 hours (8 yrs) 52 mg IUD 1 Each by INTRAUTERINE route as directed. 1 Each 0 ? cholecalciferol, vitamin D3, (VITAMIN D3 50 MCG, 2,000 UNIT, GUMMIES) 50 mcg once daily. No current facility-administered medications for this visit. ALLERGIES: Ultram [Tramadol Hcl] and Seasonal Allergies PERSONAL HISTORY: SOCIAL HISTORY Social History Tobacco Use ? Smoking status: Never ? Smokeless tobacco: Never Vaping Use ? Vaping status: Never Used Substance Use Topics ? Alcohol use: Yes Comment: Rarely once every couple months ? Drug use: No FAMILY HISTORY: FAMILY HISTORY FAMILY HISTORY Problem Relation Age of Onset ? other (Multiple Sclerosus) Mother ? Hypertension Father ? Liver Cancer Brother 35 bile duct- passed at 36 ? Cancer Maternal Grandmother sinus ? Alzheimer's Disease Maternal Grandfather ? Diabetes Paternal Grandmother ? Breast Cancer Paternal Grandmother ? Coronary Artery Disease Paternal Grandfather of DE ? Heart Paternal Grandfather DE ? Asthma Daughter REVIEW OF SYMPTOMS: GENERAL: denies fevers or chills ENDOCRINOLOGY: has not been on steroids Cardiology : denies palpitations or chest pain Respiratory: denies SOB or cough Hematology: denies history of prolonged bleeding or easy bruising or VTE Allergy: Denies history of personal or family history of allergy to anesthesia PHYSICAL EXAMINATION: VITALS: Blood pressure 124/78, pulse 102, height 163.8 cm (5' 4.5), weight 93.4 kg (206 lb), last menstrual period 02/16/2023, SpO2 99%. GENERAL: The patient is well nourished, well hydrated in no acute distress. , The patient is oriented to time, place, and person. NECK: Supple. No lynphadenopathy, normal thyroid, no thyromegaly. LUNGS: Clear to auscultation bilaterally. no wheezes, rhonchi or rales HEART: Regular rate and rhythm, Normal heart sounds, and No murmurs or gallops PELVIC US 08/28/24 Uterus: -Size: 9.3 x 5.8 x 6 cm -Orientation: Anteverted -Endometrial echo complex: Evaluation of the endometrium was adequate. No endometrial abnormality. The endometrial echo complex measured 0.5 cm. IUD in good position within the endometrium -Cervix: Nabothian cysts present, otherwise unremarkable. -Adenomyosis assessment: There are no sonographic findings of adenomyosis. -Fibroids: There are no fibroids. Right Ovary: 2.5 x 1.9 x 2.1 cm Left Ovary: 4.4 x 2.4 x 3.3 cm Simple 2.2 cm cyst within it EMB/pap/HPV from 01/24/23 benign IMPRESSION: menorrhagia, endometrial hyperplasia without atypia PLAN: The risks/benefits/alternatives and personal involved for the planned LAVH, bilateral salpingectomy with possible cystoscopy were reviewed with the patient. Her questions were answered to her satisfaction and she desires to proceed. Consent was signed. I reviewed with her postop instructions and expectations. I have reviewed and updated past medical and surgical history, medications and allergies Assessment & Plan Assessment/Plan (1) Menorrhagia: (2) Endometrial hyperplasia without atypia, simple:
[2024-06-23 12:06] LABS: Hematocrit 40.9 % (37-47); Hemoglobin 13.6 g/dL (12.0-15.0); Mean Corp Hgb Conc 33.3 g/dL (32-36); Mean Corpuscular Hgb 31.2 pg (27.0-32.0); Mean Corpuscular Volume 93.8 fL (81-99); Mean Platelet Vol. 9.9 fl (6.2-12.0); Platelet Count 412 K/mm3 (150-450); RBC Distribution Width CV 13.1 % (11.6-14.6); RBC Distribution Width SD 45.1 fl (35.1-43.9); Red Blood Count 4.36 M/mm3 (4.2-5.4); White Blood Count 8.3 K/mm3 (4.4-11.0)
[2024-06-25] VITALS (20 sets, daily range): BP systolic 120–154; BP diastolic 62–94; PULSE 52–108; RESP 14–18; TEMP 36.2–36.9; O2SAT 97–100; BMI 34.4
[2024-06-25 08:33] LABS: Internal QC Validated? YES +Cl - CLEAR BKGD; Pregnancy, Urine Negative Negative
--- NOTE | 2024-06-25 08:50 | PCM.PRE.AN2 ---
ASA Classification* ASA Classification ASA Classification: 2 Assessment & Plan Anesthesia* Anesthesia Assessment Anesthesia Assessment: Discussed sedation and/or anesthesia options, risks, benefits, and alternatives with patient/parents/legal guardian/POA. Questions invited. The patient/parents/legal guardian/POA seems to understand and agrees to proceed with anesthesia plan. Reviewed the physical assessment, medical history, allergy history and patient home medications list prior to surgery/procedure/anesthetic and documented any changes. Performed airway and anesthesia risk assessments. Anesthesia Type Anesthesia Type: General Anesthesia Focused Assessment* Airway Assessment Mouth opens: >3 cm Mallampati Score: II Focused Labs Anesthesia Preop lab: CBC WBC 8.3 K/mm3 (4.4-11.0) 06/23/24 11:38 06/23/24 RBC 4.36 M/mm3 (4.2-5.4) 06/23/24 11:38 06/23/24 Hgb 13.6 g/dL (12.0-15.0) 06/23/24 11:38 06/23/24 Hct 40.9 % (37-47) 06/23/24 11:38 06/23/24 Plt Count 412 K/mm3 (150-450) 06/23/24 11:38 06/23/24 CHEMISTRY Potassium 3.8 mmol/L (3.5-5.1) 11/17/17 16:52 11/17/17 Sodium 140 mmol/L (136-145) 11/17/17 16:52 11/17/17 Magnesium 2.0 mg/dL (1.5-2.2) 06/23/24 11:38 06/23/24 BUN 11 mg/dL (7-18) 11/17/17 16:52 11/17/17 Creatinine 0.91 mg/dL (0.55-1.02) 06/01/18 22:12 06/01/18 Glucose 97 mg/dL (74-106) 11/17/17 16:52 11/17/17 COAG PT 12.9 SECONDS (11.7-14.9) 06/01/18 22:12 06/01/18 Urine Test Negative Negative 06/25/24 08:25 06/25/24 Pre-Assessment Diagnosis/Proposed Procedure Planned Operative Procedure(s): (B) Hysterectomy,LAVH, bilateral salpingectomy, possible cystoscopy, ERAS Anesthesia History 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 When Was Last Pacemaker Check QUESTION #4 FULL TEXT: You/Your Family Experience fever (hyperthermia) with Anesthesia Last Oral Intake Last Oral intake: Last Oral Intake NPO since Meds taken in AM with sips of water? Meds patient instructed to take am of surgery PONV PONV - management retail intern: PONV - management retail intern Female Yes 06/21/24 12:16 HX of Motion Sickness Yes 06/21/24 12:16 HX of N/V After Surgery No 06/21/24 12:16 Non-Smoker Yes 06/21/24 12:16 Duration of Surgery greater Yes 06/21/24 12:16 than 60 minutes Number of Risk Factors 4 06/21/24 12:16 PONV Score Severe Risk 06/21/24 12:16 Height & Weight Height & Weight: Anesthesia: Height & Weight Height 5 ft 6 in 06/24/24 10:27 Weight: 93.44 kg 06/24/24 10:27 Respiratory Assessment Respiratory Assessment - management retail intern: Respiratory Tract Infection Hx - management retail intern Hx Respiratory Tract Infection No 06/21/24 12:16 STOP Sleep Apnea STOP Sleep Apnea - management retail intern: STOP Sleep Apnea - management retail intern Hx Hypertension Yes: only during 06/21/24 12:16 2019 Hx Sleep Apnea No 06/21/24 12:16 CPAP BIPAP Do you snore loudly (louder No 06/21/24 12:16 than talking or can be heard Do you often feel tired/ No 06/21/24 12:16 fatigued/ sleepy during daytime? Has anyone observed you stop No 06/21/24 12:16 breathing during sleep? STOP Results Negative 06/21/24 12:16 QUESTION #5 FULL TEXT : Do you snore loudly (louder than talking or can be heard through closed doors)? Tobacco Use History Tobacco Use History - management retail intern: Tobacco Use History - management retail intern Tobacco Use Smoking Status Never smoker 06/21/24 12:16 Hx Tobacco Use No 06/21/24 12:16 Years Smoking Packs Smoked per Day Smoking Cessation Date was within the last 15 years Hx Smoking Cessation Date Hx Smoking Cessation Counseling Hematologic Medial History Hematologic Hx - management retail intern: Hematologic Medical Hx - rn clinical documentation specialist Hx of Blood Transfusion No 06/21/24 12:16 Hx of Transfusion in last 3 No 06/21/24 12:16 Months Date of Last Transfusion (if within last 3 months) Ever experience any problems No 06/21/24 12:16 with transfusion(s)? Specify any problems Hx of Preganancy in last 3 No 06/21/24 12:16 Months Nurse Filling Out Transfusion MGRIFFITH 06/21/24 12:16 & Questions: Date: 06/21/24 06/21/24 12:16 Time: 12:19 06/21/24 12:16 Patient unable to answer at this time (ie. confused, unrespo /Reproduction History /Reproductive History - management retail intern: /Reproductive Hx- management retail intern Hx Now No 06/21/24 12:16 Gestational Age (in weeks): EDC: Hx Hx Para Hx Section SAB No 06/21/24 12:16 Active Medications Active Medications: Current Medications Generic Name Dose Route Start Last Admin Trade Name Freq PRN Reason Stop Dose Admin Acetaminophen 1,000 mg 06/25/24 10:15 Acetaminophen 500 Mg Tablet PO 06/25/24 10:16 PREOP ONE Celecoxib 400 mg 06/25/24 10:15 Celecoxib 200 Mg Capsule PO 06/25/24 10:16 X1 ONE Dexamethasone Sodium Phosphate 8 mg 06/25/24 10:15 Dexamethasone 4 Mg/Ml Vial IV 06/25/24 10:16 X1 ONE Enoxaparin Sodium 40 mg 06/25/24 10:15 Enoxaparin 40 Mg/0.4 Ml Syringe SC 06/25/24 10:16 X1 ONE Gabapentin 600 mg 06/25/24 10:15 Gabapentin 600 Mg Tablet PO 06/25/24 10:16 PREOP ONE Lactated Ringer's 1,000 mls @ 40 mls/hr 06/25/24 10:15 IV .Q25H STEVEN Cefazolin Sodium 2 gm/ N/A 20 mls @ 400 mls/hr 06/25/24 10:15 IV 06/25/24 10:17 PREOP ONE Lactated Ringer's 1,000 mls @ 40 mls/hr 06/25/24 10:15 IV .Q25H STEVEN Magnesium Sulfate 1 gm/ 102 mls @ 408 mls/hr 06/25/24 10:15 Dextrose IV 06/25/24 10:29 X1 ONE Insulin Human Lispro 0 unit 06/25/24 10:15 Insulin Lispro 100 Unit/Ml Insuln.Pen SC 06/25/24 18:00 Q4H PRN PRN BG >/= 180, SEE PROTOCOL Protocol Ondansetron HCl 4 mg 06/25/24 10:15 Ondansetron 4 Mg/2 Ml Vial IV 06/25/24 10:16 X1 ONE Phenazopyridine HCl 190 mg 06/25/24 10:15 Phenazopyridine 95 Mg Tablet PO 06/25/24 10:16 X1 ONE Scopolamine HBr 1 patch 06/25/24 10:15 Scopolamine 1mg/72hr Patch TD 06/25/24 10:16 X1 ONE PFSH Medical History Difficulty swallowing Non-smoker Home Medications ?Medication ?Instructions ?Recorded ?Last Taken ?Type cholecalciferol (vitamin D3) 25 25 mcg PO DAILY 06/21/24 Unknown History mcg (1,000 unit) tablet (Vitamin D3) docusate sodium 100 mg capsule 100 mg PO DAILY 06/21/24 Unknown History (Colace) multivitamin (Daily Value tablet) 1 tab PO DAILY 06/21/24 Unknown History phentermine 37.5 mg tablet 37.5 mg PO DAILY 06/21/24 Unknown History topiramate 50 mg tablet 50 mg PO DAILY 06/21/24 Unknown History Allergy/AdvReac Type Severity Reaction Status Date / Time tramadol (From Ultram) AdvReac Other Verified 06/21/24 12:09 Surgical History History of umbilical hernia repair History of tonsillectomy Social History Smoking Status: Never smoker Review of Systems (Anesthesia) ROS Narrative System reviewed and no additional complaints, except as documented.
[2024-06-25] MEDS: Scopolamine 1mg/72hr Patch 1 PATCH TD (09:09)
[2024-06-25] MEDS: Phenazopyridine 95 MG Tablet 190 MG PO (09:14)
[2024-06-25] MEDS: Lactated Ringers 1,000 ML 40 ML IV ×2 (09:16→18:32)
[2024-06-25] MEDS: Gabapentin 600 MG Tablet PO (09:16)
[2024-06-25] MEDS: Celecoxib 200 MG Capsule 400 MG PO (09:16)
[2024-06-25] MEDS: Acetaminophen 500 MG Tablet 1000 MG PO (09:16)
[2024-06-25] MEDS: Enoxaparin 40 MG/0.4 ML Syringe SC (09:17)
[2024-06-25] MEDS: Magnesium 1 GM over 15 mins IV (09:17)
[2024-06-25] MEDS: Bupivacaine Mpf 0.5% 30 ML VIAL (09:58)
--- NOTE | 2024-06-25 10:15 | HYST_PTH ---
PATIENT: ODIN FOOTE LOC: [facility] U#:[id number] AGE/SX: 39/F ROOM: [facility] RE06/25/[address]: Dr. Radha Gomez MD : 1985 BED: 1 DIS: 06/26/2024 SPEC #: [id number] RECD: 06/25/24 14:03 STATUS: BRETT MCGARRY #: [id number] VIKRAM: 06/25/24 10:[address]: Radha Gomez DEPT: SURGICAL PATHOLOGY RECD BY: Vega Noonan ENTERED: 06/25/24 14:04 SP TYPE: HYSTERECT OTHR DR: Dr. Jayson Child MD Tissues: Uterus, NOS Procedures: Surgery Specimen Level V HEADER OPERATION: Hysterectomy, LAVH, bilateral salpingectomy, cystoscopy PRE-OP DIAGNOSIS: Menorrhagia, endometrial hyperplasia without atypia, simple TISSUE SUBMITTED: Parisuers, cervix, bilateral fallopian tubes MICROSCOPIC DIAGNOSIS Uterus, cervix, and bilateral fallopian tubes, hysterectomy with bilateral salpingectomy: Cervix: squamous metaplasia, mild chronic inflammation Endometrium: residual endometrial hyperplasia with focal cytologic atypia, progestin effect Myometrium: no specific pathologic change Right fallopian tube: no specific pathologic change Left fallopian tube: benign paratubal cyst (0.6 cm). Note: The entire endomyometrial junction was submitted. MICROSCOPIC DESCRIPTION Slides are reviewed. GROSS DESCRIPTION Received in formalin labeled Odin Foote and designated uterus cervix and bilateral tubes is a uterus with attached cervix, attached left fallopian tube and separately received right fallopian tube. The uterus and cervix weigh 143 g and measures 10.2 cm from fundus to cervix, 6.2 cm from cornu to cornu, and 4.3 cm from anterior to posterior. The serosa is pink-emanuel and smooth. The cervix measures 4.2 cm in diameter x 4.0 cm in length. The cervical mucosa is emanuel and slightly wrinkled. The endocervix is red-emaneul and slightly folded with a sharp squamocolumnar junction. Sectioning shows nabothian cysts that measure up to 0.6 cm in greatest dimension and contain emanuel mucus. The triangular endometrial cavity measures 4.1 x 2.7 cm and is lined by red-brown, smooth, endometrium that measures 0.1 cm thick. No gross lesions are discernible. Sectioning through the myometrium shows uniform, pink-emanuel, coarsely trabecular cut surfaces, up to 2.7 cm thick. The right and left segments of fallopian tube measure 5.2 cm long by 0.5 cm in diameter, and 5.0 cm long by 0.5 cm in diameter, respectively. Sectioning shows an unremarkable lumen and fimbria bilaterally. The left fallopian tube contains a 0.6 cm paratubal cyst. Forepart Rasper sections are submitted as follows: Cassette Summary:6-4-negtnziu and posterior cervix [id number] [id number] [id number] fallopian tube, two cross-sections and entire bisected -bzfy fallopian tube, two cross-sections, paratubal cyst and entire bisected fimbriaJK. 06/25/2024 13-17 anterior endomyometrium 18-22- posterior endomyometrium 23-28- random pieces that were loose in the container JS/mr 07/07/2024 CPT:73540
[2024-06-25] MEDS: Cefazolin 2 GM in Syringe 10 ML IV (10:20)
[2024-06-25] MEDS: dexAMETHasone 4 MG/ML Vial 8 MG IV (10:25)
[2024-06-25] MEDS: Lidocaine 1%/Epi 1:200 (30ml) 30 ML AMPUL (10:51)
--- NOTE | 2024-06-25 11:49 | OP.PCM_ITS ---
Problems Associated Problem List Diagnoses (1) Endometrial hyperplasia without atypia, simple: (2) Menorrhagia: Operative Report (Standard) Operative Information Date of Procedure: 06/25/24 Pre-Operative Diagnosis: menorrhagia, endometrial hyperplasia without atypia Post-Operative Diagnosis: same Surgery/Procedure Performed: LAVH, bilateral salpingectomy and cystoscopy supervisor hot strip mill: Yes Parts Cataloger: Carly Cabral Tasks completed by email marketing assistant: Closing, Dissecting tissue, Insert Trochanter, Hemostasis: Electrocautery, Trocar and Retracting Additional hospital aides and assistants teacher?: No Type of Anesthesia: General RN Documented Start/Stop Times: Operation Date: 06/25/24 10:15 Case Time Into Pre-Op 06/25/24 08:15 Anesthesia Start 06/25/24 10:14 Into Room 06/25/24 10:14 Procedure Start 06/25/24 10:42 Procedure End 06/25/24 11:48 Procedure Start Time: 10:42 Procedure Stop Time: 11:48 Select all DRAINS/GRAFTS/IMPLANTS that apply: None Special Medications: none Estimated Blood Loss: 40 Fluids Replaced: 1000 cc LR Specimen collected: Yes Description of specimen(s) removed: uterus, cervix, bilateral fallopian tubes Description of surgery: The patient was taken to the operating room where she was prepped and draped in the dorsal lithotomy position. Her arms were tucked to the side and padded and her legs were placed in the yellowfin stirrups. Care was taken to ensure that she was placed in a neurologically safe and neutral position. A weighted speculum was placed in the vagina and the anterior lip of the cervix was grasped with a single-tooth tenaculum. The uterus sounded to 10 cm and the IUD was removed intact centimeters. The ZUMI uterine manipulator was placed and secured. The Vee catheter was placed to straight drain. Attention was turned to the abdominal portion of the case. Before skin incisions were made they were infiltrated with 0.5% Marcaine solution for local anesthetic. A 5 mm intraumbilical incision was made and while tenting the anterior abdominal wall up with towel clamps a 5 mm blade less trocar and sleeve were advanced directly into the peritoneal cavity. Peritoneal placement was confirmed with the laparoscope the pneumoperitoneum was created, and the underlying abdominal contents were intact. The patient was placed in Trendelenburg and the above findings were noted. Right and left lateral 5 mm trochars were placed under direct visualization without difficulty. The antimesenteric portion of the tube was clamped sealed and transected serially on both sides with the LigaSure device. The round ligaments were clamped sealed and transected and a window was made in the peritoneum. The utero-ovarian ligaments were then clamped, sealed and transected with the LigaSure device and the pedicles were hemostatic The bladder flap was dissected down with the LigaSure device and blunt dissection and the uterine arteries were then skeletonized. The uterine arteries were clamped, sealed and transected on both sides with the LigaSure device. At this point the pedicles were all examined and found to be hemostatic. Attention was turned to the vaginal portion of the case. 1% lidocaine with dilute epinephrine solution was used to infiltrate around the vaginal epithelium surrounding the cervix. An incision in the vaginal epithelium was made circumferentially and the anterior cul-de-sac was entered with blunt and sharp dissection. The posterior cul-de-sac was entered with sharp dissection. Siva clamp was placed around the uterosacral ligaments and they were clamped transected and suture-ligated on both sides. The next pedicle contained the anterior peritoneum and part of the cardinal ligament and the uterine arteries. The pedicle was was clamped with a Siva clamp, transected and suture-ligated. Hemostasis was noted. The uterus was removed and the pedicles were found to be hemostatic. The posterior vaginal cuff was run in a running locked fashion with a 2-0 Vicryl suture. A modified Domingo's culdoplasty was performed with a 2-0 PDS suture. It was placed through the posterior vaginal epithelium into the peritoneal cavity and reefed across the peritoneum through both uterosacral ligaments and then back out the midline. The vaginal cuff was then closed in a horizontal fashion with interrupted 0 Vicryl [id number] sutures. Care was taken to secure the vagina to the uterosacral ligaments. The Domingo's PDS suture was tied down. The Vee catheter was removed and a cystoscopy was performed. The bladder appeared normal and was intact. Both ureteral orifices were noted and both ureteral jets were seen. The cystoscope was removed and the Vee catheter was placed back to straight drain. A sponge stick was placed in the vagina to help place traction against the vaginal cuff. The laparoscope was reinserted into the abdomen and the pneumoperitoneum was re- created. The pedicles were reexamined and found to be hemostatic. The vaginal cuff was hemostatic. The right and left lateral ports were taken out and the sites were hemostatic. The pneumoperitoneum was released and even under low pressure there was no bleeding of any of the pedicles are vaginal cuff. The umbilical port was removed. The umbilical skin incisions were closed with Monocryl suture and skin glue by Dr. Cabral. The vaginal instruments were removed by me and a vaginal sweep was completed by me. The surgery was performed by me with assistance other than the portions dictated as above. There were no qualified residents available for this procedure. All sponge lap and needle counts were correct and the patient was transferred to the recovery room in stable condition. Surgical Findings: enlarged boggy uterus, IUD in place, normal tubes and ovaries, otherwise undremarkable peritoneal cavity Complications Complications: No Admit VTE Documentation VTE Present on Admission: No VTE Mechan Device Prophylaxis: SCD's VTE Pharm Prophylaxis ordered?: Yes
--- NOTE | 2024-06-25 11:56 | DCINST_ITS ---
Discharge Instructions Diet Discharge Diet: Light diet - advance as tolerated DC O2, CPAP, BIPAP needs Home O2 Discharge instructions: No Dressing / Incision Discharge Activity: May Take a Tub Bath (in 6 weeks) May shower in (days): 1 May resume sexual activity in: 6-8 weeks and - (Nothing in your vagina for 6 weeks. No vaginal or anal intercourse for 6-8 weeks. ) Lifting Restrictions: 20 lbs Dressing / Incision Call your doctor if your incision/area has: Continuous Slow Oozing, Sudden Increased Bleeding and Foul Smelling Discharge Call your doctor if you observe: Fever of 101 or Higher and Using more than 1 pad per hour Cleanse incision/area with: Soap & Water and - (Your incisions have skin glue, it can get wet, leave the glue on until it falls off. ) Follow Up Care Please Follow Up With: Radha Gomez MD When: With my office in 1-2 and 6 weeks or as needed. [phone] Test Results: Test results from this visit will be discussed in further detail at your follow- up appointment, if applicable. Discharge Plan Admission Primary Reason for Your Visit: Hysterectomy Attending Provider: Radha Gomez Primary Care Provider: Jayson Child Instructions Print Language: Kazakh Discharge Orders/Prescriptions Prescriptions: New acetaminophen [Acetaminophen Extra Strength] 500 mg tablet 1,000 mg PO Q6H PRN (Reason: fever or pain) 20 Days Qty: 60 1RF ibuprofen 600 mg tablet 600 mg PO Q6H PRN (Reason: Pain) 20 Days Qty: 60 1RF oxycodone 5 mg tablet 5 mg PO Q8H PRN (Reason: severe pain) 7 Days Qty: 10 0RF Continued multivitamin [Daily Value] Tablet 1 tab PO DAILY phentermine 37.5 mg tablet 37.5 mg PO DAILY topiramate 50 mg tablet 50 mg PO DAILY docusate sodium [Colace] 100 mg capsule 100 mg PO DAILY cholecalciferol (vitamin D3) [Vitamin D3] 25 mcg (1,000 unit) tablet 25 mcg PO DAILY Referrals / Follow Up: Jayson Child MD [Primary Care Provider] - Disposition Disposition (needs filled in before D/C Order can be placed): Home, Self Care
--- NOTE | 2024-06-25 12:19 | PCM.POST.ANE ---
Anesthesia: Postop Eval I Current Vital Signs Temperature: 97.1 F Pulse Rate: 70 Blood Pressure: 132/78 Respiratory Rate: 16 Pulse Ox: 100 Oxygen Delivery Method: Room Air Assessment Airway patent: Yes Spontaneous unlabored respirations: Yes Mental status: Awake and Calm nausea: No Vomiting: No Anesthesia Complication: No Fluid Hydration Crystalloid volume administer (ml): 1,800 Total IV fluid infused: 1,800 Progress Note Anesthesia document: Postop Eval 1 completed: Yes
--- NOTE | 2024-06-25 12:53 | POSTOPAN2_ITS ---
Anesthesia Postop Eval I Sum Postop Eval Completion status Anesthesia document: Postop Eval 1 completed: Yes Anesthesia Postop Eval I Summary Anesthesia Postop Eval I Summary: Anesthesia Postop Eval I: Assessment Summary Airway patent Yes 06/25/24 12:19 LAY OUT FORMER.[email or web address] Spontaneous unlabored Yes 06/25/24 12:19 LAY OUT FORMER.KEKE respirations Mental status Awake,Calm 06/25/24 12:19 LAY OUT FORMER.[email or web address] nausea No 06/25/24 12:19 LAY OUT FORMER.ROYCEOBBetito Vomiting No 06/25/24 12:19 LAY OUT FORMER.ROYCEOBBetito Anesthesia Postop Eval I: Fluid Summary Crystalloid volume administer 1,800 06/25/24 12:19 LAY OUT FORMER.[email or web address] (ml) Colloids volume administered ( ml) Blood Product volume administered (ml) Total IV fluid infused 1,800 06/25/24 12:19 LAY OUT FORMER.KEKE Anesthesia Postop Eval I: Summary Notes Anesthesia Complication No 06/25/24 12:19 LAY OUT FORMER.KEKE Anesthesia Complication Comment: Post-operative progress note Anesthesia: Postop Eval II Evaluation Mental status: Awake Pain Level: 0 nausea: No Vomiting: No
--- NOTE | 2024-06-25 12:53 | PCM.POSTANE2 ---
Anesthesia Postop Eval I Sum Postop Eval Completion status Anesthesia document: Postop Eval 1 completed: Yes Anesthesia Postop Eval I Summary Anesthesia Postop Eval I Summary: Anesthesia Postop Eval I: Assessment Summary Airway patent Yes 06/25/24 12:19 RESIDENT ASSISTANT.[email or web address] Spontaneous unlabored Yes 06/25/24 12:19 RESIDENT ASSISTANT.KEKE respirations Mental status Awake,Calm 06/25/24 12:19 RESIDENT ASSISTANT.[email or web address] nausea No 06/25/24 12:19 RESIDENT ASSISTANT.[email or web address] Vomiting No 06/25/24 12:19 RESIDENT ASSISTANT.ROYCEOBBetito Anesthesia Postop Eval I: Fluid Summary Crystalloid volume administer 1,800 06/25/24 12:19 RESIDENT ASSISTANT.[email or web address] (ml) Colloids volume administered ( ml) Blood Product volume administered (ml) Total IV fluid infused 1,800 06/25/24 12:19 RESIDENT ASSISTANT.KEKE Anesthesia Postop Eval I: Summary Notes Anesthesia Complication No 06/25/24 12:19 RESIDENT ASSISTANT.KEKE Anesthesia Complication Comment: Post-operative progress note Anesthesia: Postop Eval II Evaluation Mental status: Awake Pain Level: 0 nausea: No Vomiting: No
[2024-06-25] MEDS: HYDROmorphone 1 MG/ML Syringe IV ×2 (18:33→21:55)
[2024-06-25] MEDS: Ondansetron 4 MG/2 ML Vial IV (21:55)
[2024-06-26] MEDS: Acetaminophen 500 MG Tablet 1000 MG PO ×3 (00:47→13:32)
[2024-06-26 01:27] VITALS: BP 123/78; PULSE 69; RESP 14; TEMP 36.6; O2SAT 99
[2024-06-26] MEDS: proMETHazine 25 MG/ML Syringe IM ×2 (01:57→09:45)
[2024-06-26] MEDS: HYDROmorphone 1 MG/ML Syringe IV (03:05)
[2024-06-26 06:11] VITALS: BP 109/63; PULSE 75; RESP 14; TEMP 36.6; O2SAT 99
[2024-06-26] MEDS: Ondansetron 4 MG/2 ML Vial IV (06:14)
[2024-06-26 08:19] VITALS: O2SAT 98
[2024-06-26 09:09] VITALS: BP 137/82; PULSE 72; RESP 18; TEMP 36.6; O2SAT 100
[2024-06-26] MEDS: oxyCODONE 5 MG Tablet PO ×2 (09:44→13:36)
--- NOTE | 2024-06-26 11:20 | PCM.PN.OB ---
Subjective Subjective Sitting up in bed, drowsy from phenergan. Nausea is improved but still present. With solids still having emesis. Pain controlled overall but still abdominal discomfort. No bowel movement or passing gas. No excessive bleeding. Objective Data Objective Data Vital Signs: Vital Signs Temp Pulse Resp BP Pulse Ox O2 Del Method O2 Flow Rate 97.8 F 72 18 137/82 H 100 Room Air 4 06/26/24 09:09 06/26/24 09:09 06/26/24 09:09 06/26/24 09:09 06/26/24 09:09 06/26/24 09:09 06/25/24 13:45 Oxygen Flow Rate (L/min) 4 Oxygen Delivery Method Room Air Weight: 207 lb 3.752 oz Body Mass Index (BMI) 34.4 Intake & Output: Intake and Output for Last 24 Hours 06/24/24 06/25/24 06/26/24 23:59 23:59 23:59 Intake Total 2121 / 2172 50 / 50 Output Total 100 / 200 100 / 100 Balance 2021 -50 / -50 Lab / Micro Data 06/23/24 11:38 Assessment & Plan (1) Endometrial hyperplasia without atypia, simple: (2) Menorrhagia: PLAN: Plan 1) Vitals stable 2) Pain controlled, prescription previously sent to pharmacy 3) Zofran for nausea and bland diet 4) colace for stool softener 5) D/C home and follow up as planned.
[2024-06-26 11:56] VITALS: BP 144/88; PULSE 82; RESP 18; TEMP 36.6; O2SAT 100
[2024-06-26] MEDS: Ondansetron 8 MG Tablet PO (13:30)
== END 2024-06-26 14:25 | disposition home or self-care (01) ==
LOC: SDC 16:59 → MS3 16:59
PROVIDERS: Admitting Provider Obstetrics & Gynecology; PCP Family Medicine; Referring Provider Obstetrics & Gynecology; Visit Provider Obstetrics & Gynecology
PROC: 0UT9FZZ Resection of Uterus, Via Natural or Artificial Opening With Percutaneous Endoscopic Assistance (ICD-10-PCS; CPT 58552; principal; 2024-06-25 09:50)
DX: N85.02 Endometrial intraepithelial neoplasia [EIN] (principal); N92.0 Excessive and frequent menstruation with regular cycle; N85.01 Benign endometrial hyperplasia
CPT/HCPCS: 58552; 36415; 81025; 83735; 85027; 86850; 86900; 86901; 88307; 94668; 96372; 96374; 96375; 96376; 99221; A4216; G0378; J2405; J3475

== ENCOUNTER 2024-07-16 16:48 | Emergency (ER) | payer BC, OTHER, SELFPAY ==
[2024-07-16 16:50] VITALS: BP 151/101; PULSE 105; RESP 18; TEMP 36.8; O2SAT 100; BMI 33.4
[2024-07-16 16:54] VITALS: BP 151/101; PULSE 105; RESP 18; TEMP 36.8; O2SAT 100
[2024-07-16 17:37] LABS: Absolute Neutrophil Count 5.3 X10^3/uL (2.0-7.7); Basophil# 0.05 X10^3/uL; Basophil% 0.6 % (0-1); Eosinophil# 0.11 X10^3/uL; Eosinophils% 1.2 % (0-5); Hematocrit 38.7 % (37-47); Hemoglobin 13.1 g/dL (12.0-15.0); Lymphocyte % 33.9 % (19-41); Mean Corp Hgb Conc 33.9 g/dL (32-36); Mean Corpuscular Hgb 31.1 pg (27.0-32.0); Mean Corpuscular Volume 91.9 fL (81-99); Mean Platelet Vol. 9.7 fl (6.2-12.0); Monocyte# 0.39 X10^3/uL; Monocyte% 4.4 % (0-10); NRBC Flagged by Analyzer 0 % (0-5); Neutrophil # 5.28 X10^3/uL (2.7-7.7); Neutrophil % 59.6 % (47-70); Platelet Count 443 K/mm3 (150-450); RBC Distribution Width CV 12.6 % (11.6-14.6); RBC Distribution Width SD 42.5 fl (35.1-43.9); Red Blood Count 4.21 M/mm3 (4.2-5.4); White Blood Count 8.9 K/mm3 (4.4-11.0)
--- NOTE | 2024-07-16 17:40 | CT_ITS ---
EXAM: ABDOMEN/PELVIS W IV CONT ONLY 07/16/2024 CLINICAL HISTORY: Right lower quadrant post hysterectomy pain COMPARISON: None available TECHNIQUE: CT of the abdomen and pelvis with contrast with coronal and sagittal reformatted images. 75 cc Isovue 370 contrast FINDINGS: Findings are most suggestive of a incidental small pulmonary sequestration medial left lower lobe posterior recess. Mild dependent atelectasis. The gallbladder is prominent in size without evidence of wall thickening, calcified stones, pericholecystic free fluid or adjacent fat stranding. The liver, adrenal glands, kidneys, pancreas and spleen appear within limits. Symmetric appearing nephrograms without hydronephrosis or perinephric stranding. Abdominal aorta appears within limits. No adenopathy. No bowel dilation or free air. A retrocecal appendix is present with the distal aspect mildly prominent in size at 7 mm however no secondary signs are seen axial 81 and coronal 46. Mostly collapsed bladder appears within limits. Status post hysterectomy. Trace pelvic free fluid and mild lower pelvic fat stranding about the upper vaginal cuff. No abscess identified. The ovaries appear within limits. Bilateral symmetric sclerosis of the iliacs adjacent to the SI joints. CT/Abdomen/Pelvis W IV Cont ONLY IMPRESSION: Mostly collapsed bladder appears within limits. Status post hysterectomy. Trac e pelvic free fluid and mild lower pelvic fat stranding about the upper vaginal cuff. No abscess identified. The ovaries appe ar within limits. The gallbladder is prominent in size without evidence of wall thickening, calci fied stones, pericholecystic free fluid or adjacent fat stranding. A retrocecal appendix is present with the distal aspect mildly prominent in siz e at 7 mm however no secondary signs are seen axial 81 and coronal 46. Reading Location: [id number]
--- NOTE | 2024-07-16 17:41 | EDS_ITS ---
HPI History of Present Illness Chief Complaint: Abd Pain Detail of Chief Complaint: Abdominal pain Informant: patient and spouse/S.O. Narrative Narrative: Patient presents to the emergency department with complaint of abdominal pain that she has had for about 3 weeks since she had her hysterectomy. Patient states all the pain seems to be right lower quadrant. Initially was mild after surgery. Over the last week its gotten significantly worse. She describes intermittent episodes lasting up to a minute of severe pain. Frequency increasing and now about every 5 minutes or so. She denies nausea or vomiting. She denies fever. She does describe some mild dysuria. She called her DEBT AND BUDGET COUNSELOR office today and was advised to come to the emergency department. Patient still has both ovaries. Still has her appendix and gallbladder. PFSH PFSH Medical History Difficulty swallowing Non-smoker Home Medications ?Medication ?Instructions ?Recorded ?Last Taken ?Type cholecalciferol (vitamin D3) 25 25 mcg PO DAILY Unknown History mcg (1,000 unit) tablet (Vitamin D3) docusate sodium 100 mg capsule 100 mg PO DAILY 5 Unknown History (Colace) multivitamin (Daily Value tablet) 1 tab PO DAILY 06/21 Unknown History phentermine 37.5 mg tablet 37.5 mg PO DAILY 06/21/24 0 06/19/24 History topiramate 50 mg tablet 50 mg PO DAILY 06/21/2410/13 History acetaminophen 500 mg tablet 1,000 mg (2 x 500 mg) PO Q 6H PRN 06/25/24 Unknown Rx (Acetaminophen Extra Strength) fever or pain 20 days # 60 tabs ibuprofen 600 mg tablet 600 mg PO Q6H PRN Pain 20 da ys #60 06/25/24 Unknown Rx TABLETS oxycodone 5 mg tablet 5 mg PO Q8H PRN severe pain 7 days 06/25/24 Unknown Rx #10 TABLETS ondansetron HCl 8 mg tablet 8 mg PO Q8H PRN PRN Unknown Rx NAUSEA/VOMITING #30 tabs hydrocodone-acetaminophen 5-325mg 1 tab PO Q4H PRN PRN Pain 2 days 07/16/24 Unknown Rx 5mg-325mg #10 TABLETS sulfamethoxazole 800 1 tab PO BID #6 TABLETS 06/20 12/13 Unknown Rx mg-trimethoprim 160 mg tablet Allergy/AdvReac Type Severity Reaction Status Date / Time tramadol (From [facility]) AdvReac Other Verified 07/16/24 16:49 Surgical History History of umbilical hernia repair History of tonsillectomy Social History Smoking Status: Never smoker ROS ROS ED Review of Systems ROS Unobtainable: other Constitutional Constitutional ED: Reports lethargy; Denies chills, fever(s), sweats or weight loss Eyes Eyes: Denies blurry vision, change in vision or diplopia ENT ENT ED: Denies rhinorrhea or sore throat Cardiovascular Cardiovascular: Denies chest pain, orthopnea or racing heartbeat Respiratory/Chest Respiratory/Chest: Denies cough, dyspnea, dyspnea on exertion, orthopnea or sputum Gastrointestinal Gastrointestinal: Reports abdominal pain; Denies diarrhea, nausea or vomiting Genitourinary Genitourinary ED: Reports dysuria; Denies hematuria or urinary frequency Musculoskeletal Musculoskeletal: Denies arthralgias, back pain, myalgias or neck pain Integumentary Denies abscess, Abrasions or rash Neurologic Neurologic: Denies headache(s) or weakness Psychiatric Psychiatric: Denies anxiety, depression or suicidal thoughts Endocrine Endocrinology: Denies polydipsia, polyphagia or polyuria Hematologic/Lymphatic Hematologic/Lymphatic: Denies easy bleeding, easy bruising or lymphadenopathy Allergic/Immunologic Allergic/Immunologic ED: Denies mouth swelling, tongue swelling or urticaria EXAM Physical Exam Const Vital Signs: 07/16/24 16:50 07/16/24 16:54 07/16/24 17:49 Temperature 98.3 F 98.3 F Temperature Source Oral Oral Pulse Rate 105 H 105 H 78 Respiratory Rate 18 18 18 Blood Pressure 151/101 H 151/101 H Blood Pressure Mean 117 117 Pulse Ox 100 100 99 Oxygen Delivery Method Room Air Room Air Room Air 07/16/24 18:00 07/16/24 18:50 Temperature 98.1 F Temperature Source Oral Pulse Rate 78 77 Respiratory Rate 19 H 18 Blood Pressure 136/95 H 136/78 H Blood Pressure Mean 108 97 Pulse Ox 99 99 Oxygen Delivery Method Room Air Room Air Positive well nourished and well developed General Appearance ED: well developed and NAD HEENT Reports TM's clear and moist mucous membranes normocephalic and atraumatic; Negative for trauma or tenderness Tympanic Membrane ED: Yes TM's clear Eyes PERRL and EOMs intact bilaterally General Eye ED: Negative for pale conjunctiva or scleral icterus Neck no lymphadenopathy, supple and no JVD General: Negative for tenderness Chest Wall inspection of chest normal and palpation of chest normal Chest: Negative for tenderness Resp normal respiratory effort and clear to auscultation bilaterally Effort and Inspection: Negative for respiratory distress or pain with movement Auscultation: Negative for rhonchi, wheezes or diminished lung sounds Cardio regular rate, regular rhythm, S1 normal heart sound, S2 normal heart sound and no murmurs Peripheral Pulses: pulses 2+ throughout GI normal to inspection, nondistended, normoactive bowel sounds, soft to palpation, non-distended and no masses GI Narrative: Tenderness palpation over the right lower quadrant into the lower pelvis. Mild guarding. There is no rebound, rigidity, or peritoneal signs. No mass palpated Back/Spine no CVA tenderness and no thoracic nor lumbar tenderness Extremity normal to inspection General Extremety ED: Negative for edema General Extremity: Negative for edema Neuro oriented x3, CN's II-XII intact bilaterally, no sensory deficits noted and gait normal Sensorium / Orientation: awake, alert, oriented to person, oriented to place and oriented to time Motor Exam: strength 5/5 throughout and strength abnormal Psych mental status grossly normal Skin no rashes or lesions noted and no wounds MDM MDM MDM Narrative Medical decision making narrative: Patient presents with abdominal pain postop 3 weeks ago. She has intermittent pains mostly to the right lower abdomen. Patient was advised by her DEBT AND BUDGET COUNSELOR to come in and get evaluated. Patient had a hysterectomy 3 weeks ago. IV established. She was medicated with Dilaudid and Zofran. CBC with differential obtained showed a white count of 8.9 with hemoglobin 13 and platelet count of 443. Chemistries unremarkable. LFTs normal. Lipase normal at 37. Serum Prag was negative. Urinalysis showed 500 leukocyte esterase and 10-25 WBCs. Pelvic ultrasound obtained showed no evidence of torsion. Will discuss case with her DEBT AND BUDGET COUNSELOR. Will treat for 3 days with Bactrim for possible UTI. I did discuss case with Dr. Stafford who is covering for Dr. Gomez. She is comfortable with plan. Lab Data Attestation: I reviewed the patient's lab results. Labs: Laboratory Results - last 24 hr 07/16/24 07/16/24 17:26 18:41 WBC 8.9 RBC 4.21 Hgb 13.1 Hct 38.7 MCV 91.9 MCH 31.1 MCHC 33.9 RDW Std Deviation 42.5 RDW Coeff of Riley 12.6 Plt Count 443 MPV 9.7 Immature Gran % (Auto) 0.300 Neut % (Auto) 59.6 Lymph % (Auto) 33.9 [place] % (Auto) 4.4 Eos % (Auto) 1.2 Baso % (Auto) 0.6 Absolute Neuts (auto) 5.3 Absolute Lymphs (auto) 3.00 Nucleated RBC % 0 Sodium 136 Potassium 4.0 Chloride 104 Carbon Dioxide 17.9 L Anion Gap 14 BUN 13 Creatinine 0.70 Estim Creat Clear Calc 125.85 Est GFR (MDRD) Non-Af 113 BUN/Creatinine Ratio 18.9 Glucose 95 Calcium 9.4 Total Bilirubin 0.19 AST 13 ALT 7 Alkaline Phosphatase 73 Total Protein 5.8 L Albumin 3.7 Globulin 2.1 L Albumin/Globulin Ratio 1.8 Lipase 37 Serum , Qual NEGATIVE Urine Color Yellow Urine Clarity Sl. Cloudy Urine pH 5.0 Ur Specific [place] 1.015 Urine Protein 30 H Urine Glucose (UA) Normal Urine Ketones 15 H Urine Occult Blood 50 H Urine Nitrite Negative Urine Bilirubin Negative Urine Urobilinogen Normal Ur Leukocyte Esterase 500 H Urine RBC 0-5 SEEN Urine WBC 10-25 SEEN Ur Squamous Epith Cells 0-5 SEEN Amorphous Sediment 1+ URATE Urine Bacteria 0 SEEN Urine Mucus 0 SEEN Radiography Diagnostic Testing: Clinical Impression(s) from Imaging Studies Abdomen/Pelvis CT 07/16/24 17:40 IMPRESSION: Mostly collapsed bladder appears within limits. Status post hysterectomy. Trace pelvic free fluid and mild lower pelvic fat stranding about the upper vaginal cuff. No abscess identified. The ovaries appear within limits. The gallbladder is prominent in size without evidence of wall thickening, calcified stones, pericholecystic free fluid or adjacent fat stranding. A retrocecal appendix is present with the distal aspect mildly prominent in size at 7 mm however no secondary signs are seen axial 81 and coronal 46. Reading Location: [id number] Pelvis Ultrasound 07/16/24 18:47 IMPRESSION: Visualization of the bilateral ovaries is significantly limited by transabdominal technique. The bilateral ovaries are grossly unremarkable on comparison same day CT examination. If continued clinical concern, pelvic MRI could be obtained for further evaluation. Reading Location: [facility] Discharge Plan Triage Chief Complaint: Abd Pain Other Complaint: Female C/O ED Provider: Fidel King Dx/Rx/DC Orders Clinical Impression: Acute postoperative abdominal pain Instructions: ED Abdominal Pain Unkn Cause Fem Prescriptions: New hydrocodone-acetaminophen 5-325 mg tablet 1 tab PO Q4H PRN PRN (Reason: Pain) 2 Days Qty: 10 0RF sulfamethoxazole-trimethoprim 800-160 mg tablet 1 tab PO BID Qty: 6 0RF No Action multivitamin [Daily Value] Tablet 1 tab PO DAILY phentermine 37.5 mg tablet 37.5 mg PO DAILY topiramate 50 mg tablet 50 mg PO DAILY docusate sodium [Colace] 100 mg capsule 100 mg PO DAILY cholecalciferol (vitamin D3) [Vitamin D3] 25 mcg (1,000 unit) tablet 25 mcg PO DAILY acetaminophen [Acetaminophen Extra Strength] 500 mg tablet 1,000 mg PO Q6H PRN (Reason: fever or pain) 20 Days Qty: 60 1RF ibuprofen 600 mg tablet 600 mg PO Q6H PRN (Reason: Pain) 20 Days Qty: 60 1RF oxycodone 5 mg tablet 5 mg PO Q8H PRN (Reason: severe pain) 7 Days Qty: 10 0RF ondansetron HCl 8 mg Tablet 8 mg PO Q8H PRN PRN (Reason: NAUSEA/VOMITING) Qty: 30 0RF Primary Care Provider: Jayson Child Referrals: Jayson Child MD [Primary Care Provider] - Activity Restrictions/Additional Instructions: Follow-up with Dr. Gomez within the next 3 to 5 days. Print Language: Swedish Disposition Disposition: Home, Self Care
[2024-07-16] MEDS: Ondansetron 4 MG/2 ML Vial IV (17:44)
[2024-07-16] MEDS: HYDROmorphone 1 MG/ML Syringe IV (17:45)
[2024-07-16 17:49] VITALS: PULSE 78; RESP 18; O2SAT 99
[2024-07-16 17:58] LABS: Lipase 37 U/L (13-75)
[2024-07-16 18:00] VITALS: BP 136/95; PULSE 78; RESP 19; TEMP 36.7; O2SAT 99
[2024-07-16 18:05] LABS: Internal QC Validated? YES +Cl - CLEAR BKGD; Pregnancy, Serum, hCG Quali. NEGATIVE Negative
[2024-07-16 18:20] LABS: ALB/GLOB Ratio 1.8 RATIO (0.9-2.4); AST(SGOT) 13 U/L (<=31); Alanine Aminotransfer ALT/SGPT 7 U/L (<=34); Albumin, Serum 3.7 g/dL (3.5-5.0); Alkaline Phosphatase 73 U/L (35-104); Anion Gap 14 (5-15); BUN 13 mg/dL (4-19); BUN/Creat Ratio 18.9 RATIO (10-20); Calcium,Total 9.4 mg/dL (7.6-11.0); Carbon Dioxide 17.9 mmol/L (21.0-32.0); Chloride 104 mmol/L (98-108); EST Glomerular Filtration Rate 113 (>60); Estimated Creatinine Clearance 125.85 ml/min (50-250); Globulin 2.1 g/dL (2.2-4.2); Glucose 95 mg/dL (70-99); Protein, Total 5.8 g/dL (5.9-8.4); Sodium Level 136 mmol/L (133-145); Total Bilirubin 0.19 mg/dL (0.00-1.30)
--- NOTE | 2024-07-16 18:47 | US_ITS ---
PROCEDURE: PELVIC (NON ) 07/16/2024 REASON FOR EXAM: 39-year-old female, status post hysterectomy 3 weeks ago, RULE OUT TORSION TECHNIQUE: Transabdominal ultrasound. Color doppler analysis of the ovaries. COMPARISON: Same day CT abdomen pelvis. FINDINGS: Measurements: Uterus: Surgically absent. Right Ovary: Nonvisualized. Left Ovary: Nonvisualized. TRANSABDOMINAL: Right ovary: Nonvisualized. Left ovary: Nonvisualized. Small volume fluid within the lower pelvis. DOPPLER: Color Doppler: Normal color flow doppler signal at both ovaries. US/Pelvic (Non ) IMPRESSION: Visualization of the bilateral ovaries is significantly limited by transabdomin al technique. The bilateral ovaries are grossly unremarkable on comparison same day CT examination. If continued clinical conc mesfin, pelvic MRI could be obtained for further evaluation. Reading Location: [id number]
[2024-07-16 18:50] VITALS: BP 136/78; PULSE 77; RESP 18; O2SAT 99
[2024-07-16 19:20] LABS: Bacteria 0 SEEN /hpf (None Seen); Mucous, Urine 0 SEEN /hpf (<or=2+)
[2024-07-16 19:28] LABS: Color, Urine Yellow (Yellow); Glucose, Dipstick Normal (Normal); Ketone-Dipstick 15 mg/dl (Negative); Leukocyte Esterase-Dipstick 500 /ul (Negative); Nitrite-Dipstick Negative (Negative); Occult Blood-Urine 50 /ul (Negative); Protein-Dipstick 30 mg/dl (Negative); Specific Gravity, Urine 1.015 (1.002-1.030); Urine Bilirubin Dipstick Negative (Negative); Urine Clarity Sl. Cloudy (Clear); Urine Urobilinogen Normal (Normal)
[2024-07-16 19:44] LABS: Red Blood Cells-Urine 0-5 SEEN /hpf (0-5); Squamous Epithelial Cells - UA 0-5 SEEN /hpf (5-10); White Blood Cells 10-25 SEEN /hpf (0-5)
[2024-07-16 19:45] LABS: Amorphous Sediment 1+ URATE
[2024-07-16] MEDS: Smz/Tmp Ds Tablet 1 TABLET PO (22:04)
[2024-07-16 22:07] VITALS: BP 146/82; PULSE 81; RESP 20; TEMP 36.8; O2SAT 99
== END 2024-07-16 22:11 | disposition home or self-care (01) ==
PROVIDERS: Emergency Provider Emergency Medicine; PCP Family Medicine; Visit Provider Emergency Medicine
DX: R10.9 Unspecified abdominal pain (principal); G89.18 Other acute postprocedural pain; R30.0 Dysuria; Z90.710 Acquired absence of both cervix and uterus
CPT/HCPCS: 74177; 76856; 80053; 81001; 83690; 84703; 85025; 87086; 87088; 96374; 96375; 99283; Q9967; A4216; J2405

== ENCOUNTER 2024-11-05 12:03 | Emergency (ER) | payer BC, OTHER, SELFPAY ==
[2024-11-05 12:04] VITALS: BP 160/104; PULSE 115; RESP 18; TEMP 37.2; O2SAT 99; BMI 33.0
--- NOTE | 2024-11-05 12:24 | CT_ITS ---
PROCEDURE: ABDOMEN/PELVIS W IV CONT ONLY 11/05/2024 REASON FOR EXAM: RLQ ABD PAIN 3 day history of right lower quadrant pain. TECHNIQUE: ABDOMEN/PELVIS W IV CONT ONLY Coronal and Sagittal reconstruction series were provided. CONTRAST: Isovue-300 VOLUME: 100 mL One or more dose reduction techniques were used (e.g., Automated exposure control, adjustment of the mA and/or kV according to patient size, use of iterative reconstruction technique. RADIATION DOSE SUMMARY: CTDlvol: 15 mGy DLP: 877.94 mGycm COMPARISON: Prior study dated July 16, 2024. FINDINGS: Lung bases: Stable mild increased markings in the posterior medial aspect of the left lower lobe suggestive of mild pulmonary sequestration. Liver: Normal size. No mass. Gallbladder: Unremarkable Spleen: Normal size. Pancreas: Normal size without evidence of mass surrounding inflammation or ductal dilation. Adrenals: Unremarkable Kidneys: Normal renal sizes. No hydronephrosis. Bladder: Unremarkable Reproductive Organs: 1.6 cm follicle in the left ovary. Status post hysterectomy. Bowel: Unremarkable Appendix: Stable appearance of the retrocecal appendix. No inflammatory changes seen in the right lower quadrant. Lymph nodes: Unremarkable. Vasculature: The abdominal aorta and IVC are normal. Peritoneum / Retroperitoneum: Unremarkable Bones: Loss of the normal lumbar lordosis. CT/Abdomen/Pelvis W IV Cont ONLY IMPRESSION: 1.6 cm follicle is noted in the left ovary. No acute abnormality is seen. Reading Location: [place] [id number]
--- NOTE | 2024-11-05 12:25 | ED.VIS.GI ---
HPI HPI - GI History of Present Illness Chief Complaint: Abd Pain Informant: patient Narrative Narrative: Patient is a 39-year-old female with history of local hernia repair (with Dr. Mayer?no mesh), complete hysterectomy presenting with 3 days of worsening right lower quadrant abdominal pain. States has been her right lower quadrant majority of the time. Notes she has had nausea and some diarrhea. States diarrhea is gone for about 5 days. She has had about 2 episodes a day. Denies any black or blood in her stool. The symptoms worsen and she saw her PCP today (Dr. Child). He was concerned for appendicitis with positive heel strike and pain in her right lower quadrant and recommend she come to the ER. I did speak with him on the phone. She denies any fevers has had some chills and reports decreased appetite over the past day. States sneezing or coughing retype improvement of abdomen makes the pain worse. No other complaints or concerns reported this time. Denies any urinary symptoms. PFSH PFSH Medical History Difficulty swallowing Non-smoker Home Medications ?Medication ?Instructions ?Recorded ?Last Taken ?Type cholecalciferol (vitamin D3) 25 25 mcg PO DAILY 06/21/24 Unknown History mcg (1,000 unit) tablet (Vitamin D3) docusate sodium 100 mg capsule 100 mg PO DAILY 06/21/24 Unknown History (Colace) multivitamin (Daily Value tablet) 1 tab PO DAILY 06/21/24 Unknown History phentermine 37.5 mg tablet 37.5 mg PO DAILY 06/21/24 06/19/24 History topiramate 50 mg tablet 50 mg PO DAILY 06/21/24 06/24/24 History acetaminophen 500 mg tablet 1,000 mg (2 x 500 mg) PO Q6H PRN 06/25/24 Unknown Rx (Acetaminophen Extra Strength) fever or pain 20 days #60 tabs ondansetron HCl 8 mg tablet 8 mg PO Q8H PRN PRN 06/26/24 Unknown Rx NAUSEA/VOMITING #30 tabs dicyclomine 10 mg capsule 20 mg (2 x 10 mg) PO TIDAC #20 11/05/24 Unknown Rx CAPSULES polyethylene glycol 3350 17 17 g PO DAILY #119 grams 11/05/24 Unknown Rx gram/dose oral powder (ClearLax) Allergy/AdvReac Type Severity Reaction Status Date / Time tramadol (From Ultram) AdvReac Other Verified 07/16/24 16:49 Surgical History H/O: hysterectomy History of umbilical hernia repair History of tonsillectomy Social History Smoking Status: Never smoker ROS ROS ED Constitutional Constitutional ED: Reports chills and other Details: Decreased appetite ; Denies fever(s) Cardiovascular Cardiovascular: Denies chest pain Respiratory/Chest Respiratory/Chest: Denies cough Gastrointestinal Gastrointestinal: Reports abdominal pain, diarrhea and nausea; Denies melena or vomiting Genitourinary Genitourinary ED: Denies dysuria or urinary frequency Musculoskeletal Musculoskeletal: Denies arthralgias, back pain or myalgias Integumentary Denies rash Neurologic Neurologic: Denies headache(s) Hematologic/Lymphatic Hematologic/Lymphatic: Denies easy bleeding or easy bruising EXAM Physical Exam Const Vital Signs: 11/05/24 12:04 11/05/24 14:30 11/05/24 15:59 Temperature 98.9 F Temperature Source Temporal Pulse Rate 115 H 95 65 Respiratory Rate 18 18 16 Blood Pressure 160/104 H 153/95 H 133/80 H Blood Pressure Mean 122 114 97 Pulse Ox 99 100 100 Oxygen Delivery Method Room Air Room Air Room Air Positive well nourished and well developed Constitutional Narrative: Uncomfortable appearing General Appearance ED: well developed HEENT Reports dry mucous membranes HEENT Narrative: Mildly dry mucosal membrane normocephalic and atraumatic Mouth ED: Yes dry mucous membranes Mouth: dry mucous membranes Eyes PERRL and EOMs intact bilaterally Neck supple Resp normal respiratory effort and clear to auscultation bilaterally Cardio regular rate and regular rhythm GI GI Narrative: Tears palpation of the right side the abdomen most pronounced in the right lower quadrant. Pain McBurney's point. Patient is have tenderness in her right upper quadrant but negative Miller sign. States the pain in her right upper quadrant actually causes more pain in her right lower quadrant. Positive heel strike. Positive psoas sign. No rebound tenderness. Inspection: Negative for abdominal distention Auscultation: normoactive bowel sounds Palpation: Negative for guarding or rigid Back/Spine no CVA tenderness Extremity full ROM General Extremety ED: Negative for edema General Extremity: Negative for edema Neuro Sensorium / Orientation: alert, oriented to person, oriented to place and oriented to time Motor Exam: Negative for general weakness Psych mental status grossly normal and thought process normal Mood & Affect: anxious MDM MDM MDM Narrative Medical decision making narrative: Patient for worsening right lower quadrant abdominal pain. Patient is quite tender in the right lower quadrant. Differential includes acute appendicitis, ruptured appendicitis. Ovarian torsion, ectopic , ruptured ovarian cyst, adhesions, bowel obstruction and constipation. She had an outpatient urinalysis just before coming in which is not consistent with infection so I do not think this needs to be repeated. She does not have any urinary symptoms at this time. She has had a prior hysterectomy but ectopic is on the differential so will obtain test. This is negative. CBC, CMP, lactate (given her degree of pain and tachycardia upon arrival) and test are all grossly normal. Patient is given morphine, Zofran and IV fluids in the emergency room. CT of the abdomen and pelvis shows a 1.6 cm follicle of the left ovary but no other acute abnormality. Transvaginal ultrasound obtained to look for another cause of her right lower quadrant aquilino pain. This shows a complex cyst on the left ovary and prior hysterectomy but no other acute process. 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 I did discussed the case with general surgery on-call, Dr. Mello, reviewed her imaging. He states there is a decent amount of stool in the right lower quadrant so it is possible that that could be putting pressure on scar tissue causing some of her symptoms. He agrees that the appendix looks normal. He recommends outpatient follow-up in the office. Patient be started on Bentyl as well as MiraLAX does help with her symptoms. Gave return precautions. Encouraged outpatient surgery follow-up. She verbalized understanding of this plan. Discharged home in improved and stable condition. Lab Data Attestation: I reviewed the patient's lab results. Labs: Laboratory Results - last 24 hr 11/05/24 12:20 WBC 7.6 RBC 4.60 Hgb 14.3 Hct 42.1 MCV 91.5 MCH 31.1 MCHC 34.0 RDW Std Deviation 43.1 RDW Coeff of [place] 12.9 Plt Count 386 MPV 9.9 Immature Gran % (Auto) 0.100 Neut % (Auto) 61.1 Lymph % (Auto) 31.0 [place] % (Auto) 5.7 Eos % (Auto) 1.4 Baso % (Auto) 0.7 Absolute Neuts (auto) 4.7 Absolute Lymphs (auto) 2.36 Nucleated RBC % 0 Sodium 136 Potassium 5.1 Chloride 105 Carbon Dioxide 20.6 L Anion Gap 11 BUN 14 Creatinine 0.73 Estim Creat Clear Calc 115.93 Est GFR (MDRD) Non-Af 108 BUN/Creatinine Ratio 18.7 Glucose 107 H Lactic Acid < 1.0 Calcium 9.7 Total Bilirubin 0.39 AST 28 ALT 13 Alkaline Phosphatase 69 Total Protein 7.3 Albumin 4.6 Globulin 2.8 Albumin/Globulin Ratio 1.6 Serum , Qual NEGATIVE Radiography Diagnostic Testing: Clinical Impression(s) from Imaging Studies Abdomen/Pelvis CT 11/05/24 12:24 IMPRESSION: 1.6 cm follicle is noted in the left ovary. No acute abnormality is seen. Reading Location: [place] [id number] Transvaginal US 11/05/24 13:24 IMPRESSION: 1. Status post hysterectomy. 2. Complex cyst, left ovary Reading Location: [place] [address] Management Discussion w/another healthcare provider: Patient Svcs Mgr Discharge Plan Triage Chief Complaint: Abd Pain ED Provider: Blanka Man Dx/Rx/DC Orders Clinical Impression: Abdominal pain, RLQ, Complex cyst of left ovary Instructions: ED Abdominal Pain Unkn Cause Fem Prescriptions: New polyethylene glycol 3350 [ClearLax] 17 gram/dose powder 17 g PO DAILY Qty: 119 0RF dicyclomine 10 mg capsule 20 mg PO TIDAC Qty: 20 0RF No Action multivitamin [Daily Value] Tablet 1 tab PO DAILY phentermine 37.5 mg tablet 37.5 mg PO DAILY topiramate 50 mg tablet 50 mg PO DAILY docusate sodium [Colace] 100 mg capsule 100 mg PO DAILY cholecalciferol (vitamin D3) [Vitamin D3] 25 mcg (1,000 unit) tablet 25 mcg PO DAILY acetaminophen [Acetaminophen Extra Strength] 500 mg tablet 1,000 mg PO Q6H PRN (Reason: fever or pain) 20 Days Qty: 60 1RF ondansetron HCl 8 mg Tablet 8 mg PO Q8H PRN PRN (Reason: NAUSEA/VOMITING) Qty: 30 0RF Primary Care Provider: Jayson Child Referrals: Jayson Child MD [Primary Care Provider] - Anton Mello MD [Med Staff - Active Staff] - Activity Restrictions/Additional Instructions: Your workup today was largely normal with no signs of appendicitis or acute pathology of the right ovary. You do have a complex cyst on the left side which I do not think is related to your symptoms today. Did discuss the case with our general surgeon, Dr. Mello, who recommended outpatient follow-up and a bowel regiment which is daily MiraLAX to help clear out some of the stool that is collected in the right lower quadrant. If you develop fever, worsening pain or further concerns please return to the emergency room. Print Language: Thai Disposition Disposition: Home, Self Care
[2024-11-05 12:35] LABS: Hematocrit 42.1 % (37-47); Hemoglobin 14.3 g/dL (12.0-15.0); Immature Granulocytes Count 0.010 X10^3/uL (0.0-0.0); Mean Corp Hgb Conc 34.0 g/dL (32-36); Mean Corpuscular Volume 91.5 fL (81-99); Mean Platelet Vol. 9.9 fl (6.2-12.0); NRBC Flagged by Analyzer 0 % (0-5); Platelet Count 386 K/mm3 (150-450); RBC Distribution Width CV 12.9 % (11.6-14.6); RBC Distribution Width SD 43.1 fl (35.1-43.9); Red Blood Count 4.60 M/mm3 (4.2-5.4); White Blood Count 7.6 K/mm3 (4.4-11.0)
[2024-11-05] MEDS: 0.9% Normal Saline (1000mL) 1,000 ML 999 ML IV (12:38)
[2024-11-05 13:06] LABS: Internal QC Validated? YES +Cl - CLEAR BKGD; Pregnancy, Serum, hCG Quali. NEGATIVE Negative; Record Kit Lot#, Serum Preg. 962302
--- NOTE | 2024-11-05 13:24 | US_ITS ---
PROCEDURE: TRANSVAGINAL NON- 11/05/2024 REASON FOR EXAM: RLQ PAIN, CONCERN FOR TORSION/OVARIAN PATHOLOGY TECHNIQUE: TRANSVAGINAL NON- COMPARISON: None. FINDINGS: Uterus: Surgically absent. Right ovary: 2.9 x 1.9 x 1.3 cm. No abnormal masses. Normal blood flow. Left ovary: 3.2 x 3.2 x 2.2 cm and contains a complex cyst measuring 2.2 x 1.7 x 1.5 cm. Normal blood flow. Other: There is no free fluid in the pelvis. US/Transvaginal Non- IMPRESSION: 1. Status post hysterectomy. 2. Complex cyst, left ovary Reading Location: [place] [address]
[2024-11-05 13:29] LABS: AST(SGOT) 28 U/L (<=31); Alanine Aminotransfer ALT/SGPT 13 U/L (<=34); Albumin, Serum 4.6 g/dL (3.5-5.0); Alkaline Phosphatase 69 U/L (35-104); Anion Gap 11 (5-15); BUN 14 mg/dL (4-19); BUN/Creat Ratio 18.7 RATIO (10-20); Calcium,Total 9.7 mg/dL (7.6-11.0); Carbon Dioxide 20.6 mmol/L (21.0-32.0); Chloride 105 mmol/L (98-108); Estimated Creatinine Clearance 115.93 ml/min (50-250); Globulin 2.8 g/dL (2.2-4.2); Glucose 107 mg/dL (70-99); Potassium 5.1 mmol/L (3.3-5.1)
[2024-11-05 14:30] VITALS: BP 153/95; PULSE 95; RESP 18; O2SAT 100
[2024-11-05 15:59] VITALS: BP 133/80; PULSE 65; RESP 16; O2SAT 100
[2024-11-05 17:00] VITALS: BP 148/77; PULSE 73; RESP 18; TEMP 36.6; O2SAT 98
== END 2024-11-05 17:13 | disposition home or self-care (01) ==
PROVIDERS: Emergency Provider Emergency Medicine; PCP Family Medicine; Visit Provider Emergency Medicine
DX: R10.31 Right lower quadrant pain (principal); N83.202 Unspecified ovarian cyst, left side; Z87.19 Personal history of other diseases of the digestive system; Z90.710 Acquired absence of both cervix and uterus
CPT/HCPCS: 74177; 76830; 80053; 83605; 84703; 85025; 96361; 96374; 96375; 99283; Q9967; A4216; J2405